=== PATIENT | female | born 1930 | race Caucasian/White ===

== ENCOUNTER → 2017-01-07 | Outpatient (CLI) | payer MEDICARE, BC ==
--- NOTE | 2017-01-07 16:19 | PN ---
DATE OF SERVICE: 01/07/2017 This patient is an 86-year-old lady coming for her yearly follow-up visit in the sleep center for treatment of obstructive sleep apnea-hypopnea syndrome. Patient continues to use her equipment every night. She sleeps better with the machine. She sleeps by herself, so there is no clear information about the presence of any snoring. Glennie Sleepiness Scale is 9. I checked her CPAP unit. CPAP pressure is 10 cm of water. Usage is 30 out of 30 nights for more than 4 hours. RAMP time is 20 minutes. Patient does not experience any problem with the usage of her machine; likes her mask; replacing her supplies regularly. She is on treatment with Ambien 2.5 mg at bedtime to help her fall asleep, and on this regimen she falls asleep pretty well. MEDICATIONS: 1. Baby aspirin. 2. Atorvastatin. 3. Benadryl. 4. Felodipine. 5. Losartan. 6. Lutein. 7. Metformin. 8. Metoprolol. 9. Ranitidine. 10. Vitamin D. 11. [place]. PHYSICAL EXAMINATION: HEENT: PERRLA, EOMI. Evaluation of oropharynx showed tongue protrudes midline; extremely low position of soft palate. NECK: Supple. No JVD. Thyroid is not palpable. LUNGS: Clear to percussion and to auscultation. Good air exchange. No wheezing or rhonchi. HEART: S1, S2 regular. No murmurs, gallops or rubs. ABDOMEN: Obese. EXTREMITIES: One plus bilateral ankle edema. PROJECT MANAGEMENT ANALYST: Awake, alert, and oriented x3. Cranial nerves 2 to 7 intact. There is no fasciculation or atrophy noted. No focal deficits observed. IMPRESSION: 1. Obstructive sleep apnea-hypopnea syndrome. Patient demonstrated 100% compliance with treatment with CPAP, benefitting from treatment. 2. Obesity. Patient's weight has increased weight around 7 pounds since previous visit, but that may be related to changes of her ( ). 3. Hypertension. 4. Diabetes mellitus. 5. Swelling of the legs. 6. End-stage renal disease, stage III. 7. Acid reflux. 8. Difficulties initiating sleep. PLAN: 1. Patient will continue to use her CPAP equipment every night for the whole night with the same regimen and CPAP pressure of 10 cm of water. 2. Prescription for all necessary CPAP supplies, including mask, tube, filters. 3. Losing weight. 4. Patient may continue to use Ambien 2.5 mg at bedtime. 5. Precautions related to driving. No driving if feeling any sleepiness. Thank you very much for allowing me to participate in the management of your patient. Sincerely, Javi Eugene MD, PhD, FAASM. Diplomat of [employer] [employer], Sleep Medicine Board by [employer], [employer] [employer]
== END | disposition home or self-care (01) ==
LOC: SLEEP 13:50
PROVIDERS: ATTEND Internal Medicine
DX: G47.33 Obstructive sleep apnea (adult) (pediatric) (principal); E66.9 Obesity, unspecified; K21.9 Gastro-esophageal reflux disease without esophagitis; E11.22 Type 2 diabetes mellitus with diabetic chronic kidney disease; I12.0 Hypertensive chronic kidney disease with stage 5 chronic kidney disease or end stage renal disease; N18.6 End stage renal disease; Z79.84 Long term (current) use of oral hypoglycemic drugs; Z68.38 Body mass index [BMI] 38.0-38.9, adult; Z79.82 Long term (current) use of aspirin; Z99.89 Dependence on other enabling machines and devices; Z79.899 Other long term (current) drug therapy

== ENCOUNTER 2017-04-21 10:57 | Observation (INO) | payer MEDICARE, BC ==
[2017-04-21 12:03] LABS: Basophils # (A) 0.1 k/uL (0-0.2); Basophils % (A) 1 %; CH 30.2; CHCM 32.7; Eosinophils # (A) 0.2 k/uL (0-0.7); Eosinophils % (A) 2 %; HCT 37.2 % (34.0-46.0); HDW 2.55; HGB 11.7 gm/dL (11.4-16.0); Luc # (Auto) 0.18; Luc % (Auto) 2; Lymphocytes # (A) 1.2 k/uL (1.0-4.8); Lymphocytes % (A) 13 %; MCH 29.2 pg (25.0-35.0); MCHC 31.5 g/dL (31.0-37.0); MCV 92.8 fL (80.0-100.0); Mean Platelet Volume 7.4; Monocytes # (A) 0.5 k/uL (0-1.0); Monocytes % (A) 6 %; Neutrophils # (A) 7.5 k/uL (1.3-7.7); Neutrophils % (A) 77 %; RBC 4.01 m/uL (3.80-5.40); WBC 9.7 k/uL (3.8-10.6); WBC (Perox) 9.01
[2017-04-21 12:08] LABS: Partial Thromboplastin Time 23.4 sec (22.0-30.0); Prothrombin Time 10.5 sec (9.0-12.0)
[2017-04-21 12:09] LABS: Calcium 9.9 mg/dL (8.4-10.2); Magnesium 1.5 mg/dL (1.6-2.3); Potassium 4.8 mmol/L (3.5-5.1); Total Bilirubin 0.4 mg/dL (0.2-1.3); Total Protein 7.4 g/dL (6.3-8.2)
[2017-04-21 12:20] LABS: Creatine Kinase 36 U/L (30-135)
--- NOTE | 2017-04-21 12:22 | ED ---
Chest Pain HPI - General Chief Complaint: Chest Pain Stated Complaint: Chest Pain Time Seen by Provider: 04/21/17 11:00 Source: EMS, RN notes reviewed Mode of arrival: EMS Limitations: no limitations - History of Present Illness Initial Comments: This 87-year-old female who is brought in for evaluation of chest discomfort and jaw pain. She states she was taken off her beta fanny yesterday she started developing retrosternal chest pain and jaw pain today. She states the pain was 3-4/10 severity. She also felt like her heart was acting up. This woke her up from sleep she notes increased pulse rate in she states she had increased blood pressure she is showing good now he does not have any discomfort at this time. No fevers chills nausea vomiting sweats. MD Complaint: chest pain - Related Data Home Medications Medication Instructions Recorded Confirmed Metoprolol Tartrate [Lopressor] 50 mg PO BID 05/06/14 04/21/17 Losartan [Cozaar] 50 mg PO HS 09/24/14 04/21/17 Multivitamins, Thera [Multivitamin 1 tab PO DAILY 09/24/14 04/21/17 (formulary)] [place]-3 Fatty Acids/Fish Oil [Fish 1 cap PO DAILY 09/24/14 04/21/17 Oil 1,000 mg Softgel] Aspirin 81 mg PO DAILY 01/28/15 04/21/17 Atorvastatin [Lipitor] 20 mg PO HS 01/28/15 04/21/17 Lutein 6 mg PO DAILY 01/28/15 04/21/17 Zolpidem [Ambien] 5 mg PO HS PRN 01/28/15 04/21/17 Felodipine [Felodipine ER] 10 mg PO DAILY 04/21/17 04/21/17 Loperamide HCl [Imodium A-D] 2 mg PO DAILY 04/21/17 04/21/17 Losartan Potassium 100 mg PO DAILY 04/21/17 04/21/17 Magnesium Oxide [Mag-Ox] 400 mg PO DAILY 04/21/17 04/21/17 Ranitidine HCl [Zantac] 150 mg PO DAILY 04/21/17 04/21/17 diphenhydrAMINE [Benadryl] 50 mg PO HS PRN 04/21/17 04/21/17 metFORMIN HCL [Glucophage] 500 mg PO DAILY 04/21/17 04/21/17 Allergies Allergy/AdvReac Type Severity Reaction Status Date / Time Penicillins Allergy Anaphylaxis Verified 04/21/17 11:26 codeine AdvReac Severe Nausea, Verified 04/21/17 11:26 Headache tramadol HCl [From Ultram] AdvReac Severe Nausea, Verified 04/21/17 11:26 Headache Review of Systems ROS Statement: Those systems with pertinent positive or pertinent negative responses have been documented in the HPI. ROS Other: All systems not noted in ROS Statement are negative. EKG Findings - EKG Results: EKG: interpreted by ERMD, sinus rhythm (Sinus rhythm of 91 ID interval 206 QRS duration 90 QT/QTC of 3/467 poor R-wave progression no acute ST-T wave changes) Past Medical History Past Medical History: CVA/TIA, Diabetes Mellitus, GERD/Reflux, Hyperlipidemia, Hypertension, Sleep Apnea/CPAP/BIPAP, Thyroid Disorder Additional Past Medical History / Comment(s): HX OF : TIA, PERIPHERAL NEUOPATHY , DIET CONTROLLED DIABETES, SWELLING IN LEGS AND FEET- WEARS COMPRESSION STOCKINGS. HX OF VIRAL HEPATITIS (1958).USES C-PAP MACHINE @ HOME. History of Any Multi-Drug Resistant Organisms: MRSA Date of last positivie culture/infection: 01/28/2015 MDRO Source:: sputum Past Surgical History: Appendectomy, Joint Replacement, Orthopedic Surgery Additional Past Surgical History / Comment(s): 10/09/14 Total L knee arthroplasty. THYROID AND PARA THYROID SURG (2011), RT ROTATOR CUFF(2002), ROCAEL CATARACTS, RT HAND(2012), OVARIAN CYST, ECTOPIC PREGANCY, RT KNEE REPLACEMENT ( 1998), left knee Oct 2014, "electrical problem in heart" Past Anesthesia/Blood Transfusion Reactions: No Reported Reaction Additional Past Anesthesia/Blood Transfusion Reaction / Comment(s): STATES SEVERE POST NASAL DRIP . Past Psychological History: Anxiety Smoking Status: Former smoker Past Alcohol Use History: Rare Past Drug Use History: None Reported - Past Family History Father Family Medical History: Cancer Additional Family Medical History / Comment(s): ESOPHAGEAL CANCER Mother Family Medical History: Coronary Artery Disease (CAD) Additional Family Medical History / Comment(s): Mother at 100 yrs of age. General Exam - General Exam Comments Initial Comments: Physical well-developed well-nourished awake alert oriented 3 female Limitations: no limitations Course Vital Signs 04/21/17 04/21/17 04/21/17 11:23 12:27 13:00 Temperature 97.6 F Pulse Rate 90 87 80 Respiratory 20 18 18 Rate Blood Pressure 174/70 143/66 141/65 O2 Sat by Pulse 100 99 95 Oximetry 04/21/17 14:00 Temperature Pulse Rate 86 Respiratory 18 Rate Blood Pressure 148/68 O2 Sat by Pulse 97 Oximetry Chest Pain MDM - MDM I did discuss the findings with the patient. Patient will be admitted she has no further chest pain at this time she has had some jaw pain but she states this is somewhat chronic. I did discuss case with Dr. Ardon with the patient will be admitted to. Cardiology will be consulted. Critical Care Time Critical Care Time: Yes Critical Care Time: 31 minutes of critical care time which includes initial presentation with history physical labs x-rays discussion with the paramedics monitoring the access rep run. Repeat evaluation of the patient discussed with the admitting physician admission orders and documentation of the above Disposition Clinical Impression: Unstable angina pectoris Disposition: ADMITTED IP TO THIS HOSP Condition: Stable Referrals: Madelin Szymanski MD [Primary Care Provider] - 1-2 days
--- NOTE | 2017-04-21 12:31 | XR ---
EXAMINATION TYPE: XR chest 2V DATE OF EXAM: 04/21/2017 COMPARISON: 02/01/2015 HISTORY: 87-year-old female with chest pain TECHNIQUE: AP and lateral views FINDINGS: Heart is upper limits of normal in size. Aorta and pulmonary vasculature within normal limits. Mild d iffuse interstitial prominence has a chronic appearance. No consolidation or pleural effusion seen. E ndplate spondylosis throughout the thoracic spine. IMPRESSION: Borderline heart size. There are chronic changes without acute process seen.
[2017-04-21 12:33] LABS: Creatine Kinase MB 0.9 ng/mL (0.0-2.4); Troponin I <0.012 ng/mL (0.000-0.034)
[2017-04-21 12:54] VITALS: RESP 18
[2017-04-21] MEDS ORDERED: NITROGLYCERIN SL TABS 0.4 MG TAB SUBLINGUAL PRN (16:44)
[2017-04-21] MEDS ORDERED: HEPARIN SODIUM,PORCINE 5,000 UNIT/ML 1 ML VIAL IV ONE (16:44)
[2017-04-21] MEDS ORDERED: SODIUM CHLORIDE 0.9% 1,000 ML IV SCH (16:45)
[2017-04-21] MEDS ORDERED: HEPARIN SODIUM,PORCINE/D5W PMX 25,000 UNIT in DEXTROSE/WATER 1 500ML.BAG IV SCH (16:45)
[2017-04-21] MEDS ORDERED: diphenhydrAMINE 25 MG CAP PO PRN (16:47)
[2017-04-21] MEDS ORDERED: ZOLPIDEM 5 MG TAB PO PRN ×2 (16:47→19:57)
[2017-04-21 17:10] LABS: Glucose,Whole Blood 87 mg/dL (75-99)
[2017-04-21 18:52] LABS: Creatine Kinase MB 1.1 ng/mL (0.0-2.4); Troponin I 0.02 ng/mL (0.000-0.034)
--- NOTE | 2017-04-21 19:46 | P.HPIM ---
History of Present Illness H&P Date: 04/21/17 Chief Complaint: palpitations 87-year-old female with past medical history significant for TIA, diabetes mellitus type 2, GERD and hypertension and obstructive sleep apnea on CPAP. PATIENT PRESENTS TO THE EMERGENCY DEPARTMENT DUE TO AN ATTACK OF PALPITATIONS. SHE REPORTS THAT SHE WOKE UP THIS MORNING AT 7:30 and was aware of her heart beating however she denies any associated symptoms. She denied any dizziness, lightheadedness, changes in her vision, shortness of breath, nausea or vomiting. She reports possibly a very mild chest discomfort described it as being centrally located 2-3 out of 10 in severity that was intermittent in nature felted as slight heaviness without any radiation and was waxing and waning in nature. She was slightly worried and took a full dose of aspirin and some Xanax and waited for it to go away on its own. She got up and went along about her day made breakfast and then at around 8:30 to 9 because the symptoms didn't go away she decides to take another full dose of aspirin and Xanax and called her PCP Dr. Szymanski. Dr. Szymanski advised her to go to the hospital to get evaluated. Patient continues to report no associated symptoms except awareness of her heartbeat. Patient took her vital signs and she found that her heart rate was ranging between 114-120 and her blood pressure was 197/114. Normally she reports that her blood pressure is always under control and that her heart rate is normally in the range of 70-80 beats per minutes. She ended up calling EMS and was brought to the hospital for further care. Patient continued to be asymptomatic otherwise. She reports that awareness of her heartbeat has actually happened before and that was 3-4 weeks ago when she felted intermittently for which she seeks medical advice at that time and her PCP decided to perform a stress test on . And the patient was instructed to stop her beta fanny on 2016. Patient otherwise denies any history of coronary artery disease. She reports that remotely she had a heart cath done 7 years ago and she was told that was normal. Patient currently reports compliance with her medications and reports that she is able to ambulate Hour at a time using her walker without having any chest pain or trouble breathing however he takes she takes things slowly. Patient reports that her diabetes is well controlled using metformin only. And she admits to a remote history of TIA without any residual weakness. Currently patient is laying comfortable in bed very pleasant and conversant not in any acute distress, we discussed advanced directive and patient elected to be a full code she reported that she has advanced directive papers signed with her doctor. Review of Systems Constitutional: Patient reports no fever, no chills, no night sweating, no significant weight changes Eyes: Patient reports no visual changes, no eye pain ENT: Patient reports no ear pain, no rhinorrhea, no sore throat Cardiovascular: Patient reports no chest pain, no exertional dyspnea, no orthopnea, no paroxysmal nocturnal dyspnea. Patient admits to chronic peripheral edema and lymphedema Respiratory:Patient reports no cough, no wheezing, no shortness of breath. Patient admits to snoring at night for which she uses CPAP Gastrointestinal: Patient reports , no constipation, no nausea no vomiting, no abdominal pain. Patient reports history of irritable bowel syndrome with diarrhea she doesn't take loperamide Genitourinary: Patient reports no dysuria, no hematuria, no changes in urinary habits, no genital lesions. Patient admits to urinary leakage at times Musculoskeletal: Patient reports no muscle pain, no joint pain Psychiatric: Patient reports no changes in mood or memory, no suicidal ideation , she reports anxiety Endocrine: Patient reports no heat intolerance, no cold intolerance, no excessive thirst, no polyuria Neurological: Patient reports no focal neurologic deficits, no weakness, no numbness, no tingling Hem/Lymphatic: Patient reports no bleeding tendency, no bruising, no swollen lymph glands Allergic/Immun: Patient reports no recent allergic reactions Skin: Patient reports no rashes, no pruritis, no ulcers Past Medical History Past Medical History: CVA/TIA, Diabetes Mellitus, GERD/Reflux, Hyperlipidemia, Hypertension, Sleep Apnea/CPAP/BIPAP, Thyroid Disorder Additional Past Medical History / Comment(s): HX OF : TIA, PERIPHERAL NEUOPATHY , DIET CONTROLLED DIABETES, SWELLING IN LEGS AND FEET- WEARS COMPRESSION STOCKINGS. HX OF VIRAL HEPATITIS (1958).USES C-PAP MACHINE @ HOME. She does not know her CPAP settings. CKDIII History of Any Multi-Drug Resistant Organisms: MRSA Date of last positivie culture/infection: 01/28/2015 MDRO Source:: sputum Past Surgical History: Appendectomy, Joint Replacement, Orthopedic Surgery Additional Past Surgical History / Comment(s): 10/09/14 Total L knee arthroplasty. THYROID AND PARA THYROID SURG (2011), RT ROTATOR CUFF(2002), ROCAEL CATARACTS, RT HAND(2012), OVARIAN CYST, ECTOPIC PREGANCY, RT KNEE REPLACEMENT ( 1998), left knee Oct 2014, "electrical problem in heart" Past Anesthesia/Blood Transfusion Reactions: No Reported Reaction Additional Past Anesthesia/Blood Transfusion Reaction / Comment(s): STATES SEVERE POST NASAL DRIP . Past Psychological History: Anxiety Smoking Status: Former smoker Past Alcohol Use History: None Reported, Rare Past Drug Use History: None Reported Additional Drug Use History / Comment(s): Patient lives alone in long term uses a walker to ambulate - Past Family History Father Family Medical History: Cancer Additional Family Medical History / Comment(s): ESOPHAGEAL CANCER Mother Family Medical History: Coronary Artery Disease (CAD) Additional Family Medical History / Comment(s): Mother at 100 yrs of age. Medications and Allergies Home Medications Medication Instructions Recorded Confirmed Type RX: Metoprolol Tartrate [Lopressor] 50 mg PO BID 05/06/14 04/21/17 History RX: Losartan [Cozaar] 50 mg PO HS 09/24/14 04/21/17 History RX: Multivitamins, Thera 1 tab PO DAILY 09/24/14 04/21/17 History [Multivitamin (formulary)] RX: [place]-3 Fatty Acids/Fish Oil 1 cap PO DAILY 09/24/14 04/21/17 History [Fish Oil 1,000 mg Softgel] Lutein 6 mg PO DAILY 01/28/15 04/21/17 History RX: Aspirin 81 mg PO DAILY 01/28/15 04/21/17 History RX: Atorvastatin [Lipitor] 20 mg PO HS 01/28/15 04/21/17 History RX: Zolpidem [Ambien] 5 mg PO HS PRN 01/28/15 04/21/17 History Felodipine [Felodipine ER] 10 mg PO DAILY 04/21/17 04/21/17 History Loperamide HCl [Imodium A-D] 2 mg PO DAILY 04/21/17 04/21/17 History Magnesium Oxide [Mag-Ox] 400 mg PO DAILY 04/21/17 04/21/17 History RX: Losartan Potassium 100 mg PO DAILY 04/21/17 04/21/17 History RX: metFORMIN HCL [Glucophage] 500 mg PO DAILY 04/21/17 04/21/17 History Ranitidine HCl [Zantac] 150 mg PO DAILY 04/21/17 04/21/17 History diphenhydrAMINE [Benadryl] 50 mg PO HS PRN 04/21/17 04/21/17 History Allergies Allergy/AdvReac Type Severity Reaction Status Date / Time Penicillins Allergy Anaphylaxis Verified 04/21/17 11:26 codeine AdvReac Severe Nausea, Verified 04/21/17 11:26 Headache tramadol HCl [From Ultram] AdvReac Severe Nausea, Verified 04/21/17 11:26 Headache Physical Exam Vitals: Vital Signs Temp Pulse Pulse Resp BP BP Pulse Ox 04/21/17 17:30 97.6 F 93 18 172/77 96 04/21/17 17:17 98.6 F 90 18 156/67 98 04/21/17 17:00 87 18 156/67 100 04/21/17 16:00 86 18 147/66 100 04/21/17 15:00 102 H 18 183/79 97 04/21/17 14:00 86 18 148/68 97 04/21/17 13:00 80 18 141/65 95 04/21/17 12:27 87 18 143/66 99 04/21/17 11:23 97.6 F 90 20 174/70 100 Intake and Output 04/21/17 04/21/17 04/21/17 06:59 14:59 22:59 Other: Weight 98.43 kg 98.5 kg Patient Weight 04/22/17 06:59 Weight 98.5 kg Constitutional: Not in acute distress, pleasant, conversant Eyes: Pupils equal round reactive to light, anicteric sclerae, moist conjunctivae ENMT: Normocephalic, atraumatic, oropharynx clear, no erythema/exudate Neck: Supple, FORM, no palpable thyromegally Lymphatics: no palpable cervical or supraclavicular lymph nodes Respiratory: Clear to auscultation bilaterally, no wheezes, no crackles, no rhonchi, clear to percussion, normal respiratory effort without use of accessory muscles. kyphosis Cardiovascular: Regular rate and rhythm, no murmurs, no gallops, no rubs, bilateral peripheral leg edema +2 , no JVD, no carotid bruits, peripheral pulses palpable and equal over bilateral radial arteries and dorsalis pedis arteries Abdomen: Bowel sounds positive, soft, no tenderness to palpation, no palpable masses, no palpable hepatosplenomegally, no abdominal wall hernias , mild abd distention Skin: Unremarkable temperature, tone, texture, and turgor, no induration or subcutaneous nodule, no rashes, no lesions, no ulcers Extremities: No digital cyanosis, ischemia or clubbing, no calf muscle tenderness bilaterally, full grossly intact active range of motion of both upper and lower extremities Psych: Alert, oriented to place, person and date, recent and remote memory intact, appropriate mood and affect, intact judgment Neurologic: Cranial nerves II-XII grossly intact, no focal sensory deficits to touch, Deep tendon reflexes unremarkable over bilateral brachial reflex Results Results: labs reviewed EKG reviewed shows a Q wave in lead III, and first degree AVB CBC & Chem 7: 04/21/17 11:33 04/21/17 11:33 Labs: Abnormal Lab Results - Last 24 Hours (Table) 04/21/17 Range/Units 11:33 Carbon Dioxide 19 L (22-30) mmol/L BUN 24 H (7-17) mg/dL Creatinine 1.23 H (0.52-1.04) mg/dL Glucose 190 H (74-99) mg/dL Magnesium 1.5 L (1.6-2.3) mg/dL Thrombosis Risk Factor Assmnt - DVT/VTE Prophylaxis DVT/VTE Prophylaxis: Pharmacologic Prophylaxis ordered (patient on heparin drip) - Choose All That Apply Any of the Below Risk Factors Present?: Yes Each Factor Represents 1 point: Obesity (BMI >25), Swollen legs (current), Varicose veins Other Risk Factors: Yes Each Risk Factor Represents 2 Points: Patient confined to bed Each Risk Factor Represents 3 Points: Age 75 years or older Thrombosis Risk Factor Assessment Total Risk Factor Score: 8 Thrombosis Risk Factor Assessment Level: High Risk Assessment and Plan (1) Heart palpitations Narrative/Plan: This is most likely further precipitated by abrupt withdrawal of metoprolol cardiac monitoring r/o underlying ACS EKG revealed a q wave in inferior leads, patient does not recall a heart attack in the past on heparin gtt now cardiology consult continue ASA, statin check TSH monitor electrolytes check 2 D echo Status: Acute (2) Accelerated hypertension Narrative/Plan: due to BB withdrawal resume metoprolol resume home blood pressure meds losartan and CCB monitor vital signs clonidine prn for SBP>170 Status: Acute (3) DM type 2 (diabetes mellitus, type 2) Narrative/Plan: controlled with diet and metformin patient reports recent A1C of 6.3% blood sugar ACHS Status: Chronic (4) CKD (chronic kidney disease), stage III Narrative/Plan: closely monitor renal function if heart cath is considered , patient would benefit from hydration IV prior , and nephro consult monitor electrolytes and urine output Status: Chronic (5) DVT prophylaxis Narrative/Plan: on heparin drip now Status: Acute (6) ALVIN (obstructive sleep apnea) Narrative/Plan: patient uses CPAP at home she is not aware of her home settings Status: Chronic Plan: full CODE Time with Patient: Greater than 30
[2017-04-21] MEDS ORDERED: ACETAMINOPHEN TAB 325 MG TAB PO PRN (19:49)
[2017-04-21] MEDS ORDERED: NALOXONE 0.4 MG/ML 1 ML VIAL IV PRN (19:49)
[2017-04-21] MEDS ORDERED: cloNIDine HCL 0.2 MG TAB PO PRN (19:58)
[2017-04-21 20:17] LABS: Glucose,Whole Blood 115 mg/dL (75-99)
[2017-04-21] MEDS: METOPROLOL TARTRATE 50 MG TAB PO SCH (20:59)
[2017-04-21] MEDS ORDERED: LOSARTAN 50 MG TAB PO SCH (21:00)
[2017-04-21] MEDS ORDERED: ATORVASTATIN 20 MG TAB PO SCH (21:00)
[2017-04-21] MEDS: NITROGLYCERIN OINT 1 INCH/GM PACKET TOPICAL SCH ×2 (21:03→23:57)
[2017-04-21 23:22] LABS: Creatine Kinase MB 1.1 ng/mL (0.0-2.4); Troponin I 0.014 ng/mL (0.000-0.034)
[2017-04-22] MEDS: NITROGLYCERIN OINT 1 INCH/GM PACKET TOPICAL SCH (06:05)
[2017-04-22 07:06] LABS: Glucose,Whole Blood 102 mg/dL (75-99)
[2017-04-22 07:25] LABS: Basophils # (A) 0.1 k/uL (0-0.2); Basophils % (A) 1 %; CHCM 31.7; Eosinophils # (A) 0.3 k/uL (0-0.7); Eosinophils % (A) 4 %; HCT 35.1 % (34.0-46.0); HDW 2.52; HGB 11.2 gm/dL (11.4-16.0); Luc # (Auto) 0.15; Luc % (Auto) 2; Lymphocytes # (A) 1.6 k/uL (1.0-4.8); Lymphocytes % (A) 20 %; MCH 30.4 pg (25.0-35.0); MCHC 31.9 g/dL (31.0-37.0); MCV 95.3 fL (80.0-100.0); Monocytes # (A) 0.6 k/uL (0-1.0); Monocytes % (A) 7 %; Neutrophils % (A) 65 %; RBC 3.69 m/uL (3.80-5.40); RDW 13.9 % (11.5-15.5); WBC 7.6 k/uL (3.8-10.6)
[2017-04-22 07:37] LABS: Calcium 9.5 mg/dL (8.4-10.2); Magnesium 1.5 mg/dL (1.6-2.3); Potassium 4.8 mmol/L (3.5-5.1)
[2017-04-22] MEDS ORDERED: REGADENOSON 0.4 MG/5 ML SYRINGE IV ONE (08:22)
[2017-04-22] MEDS ORDERED: AMINOPHYLLINE 500 MG/20 ML VIAL IV PRN (08:22)
[2017-04-22] MEDS ORDERED: MAGNESIUM OXIDE 400 MG TAB PO SCH (09:00)
[2017-04-22] MEDS ORDERED: LOPERAMIDE 2 MG CAP PO SCH (09:00)
[2017-04-22] MEDS ORDERED: LOSARTAN 50 MG TAB PO SCH (09:00)
[2017-04-22] MEDS ORDERED: metFORMIN 500 MG TAB PO SCH (09:00)
[2017-04-22] MEDS ORDERED: NON-FORMULARY DRUG (Omega-3 Fatty Acids/Fish Oil [Fish Oil 1,000 Mg Softgel] 1 CAP) PO SCH (09:00)
[2017-04-22] MEDS ORDERED: ASPIRIN 81 MG CHEW PO SCH (09:00)
[2017-04-22] MEDS ORDERED: amLODIPine 10 MG TAB PO SCH (09:00)
[2017-04-22] MEDS ORDERED: NON-FORMULARY DRUG (Lutein 6 MG) PO SCH (09:00)
[2017-04-22] MEDS ORDERED: FAMOTIDINE 20 MG TAB PO SCH (09:00)
[2017-04-22] MEDS ORDERED: ASPIRIN 325 MG TAB PO SCH (09:00)
--- NOTE | 2017-04-22 10:37 | ECHOF ---
Referral Reason:chest pain MEASUREMENTS -------- HEIGHT: 160.0 cm WEIGHT: 98.4 kg BP: 148/67 RVIDd: 2.6 cm (< 3.3) IVSd: 1.2 cm (0.6 - 1.1) LVIDd: 3.8 cm (3.9 - 5.3) LVPWd: 1.2 cm (0.6 - 1.1) IVSs: 1.6 cm LVIDs: 2.7 cm LVPWs: 1.6 cm LA Diam: 3.1 cm (2.7 - 3.8) LAESV Index (A-L): 21.66 ml/m Ao Diam: 3.2 cm (2.0 - 3.7) AV Cusp: 1.7 cm (1.5 - 2.6) MV EXCURSION: 14.881 mm (> 18.000) MV EF SLOPE: 29 mm/s (70 - 150) EPSS: 0.8 cm MV E Alejandro: 0.84 m/s MV DecT: 319 ms MV A Alejandro: 1.11 m/s MV E/A Ratio: 0.76 AR PHT: 2120 ms RAP: 5.00 mmHg RVSP: 31.41 mmHg FINDINGS -------- Sinus rhythm. This was a technically difficult study with suboptimal apical views. The left ventricular size is normal. There is borderline concentric left ventricular hypertrophy. Overall left ventricular systolic function is normal with, an EF between 60 - 65 %. The right ventricle is normal in size. Normal LA size by volume 22+/-6 ml/m2. The right atrium is normal in size. 1.5mg of Definity was utilized for enhancement of images There is mild aortic valve sclerosis. Trace to mild aortic regurgitation. The mitral valve leaflets are mildly thickened. Mild tricuspid regurgitation present. Right ventricular systolic pressure is normal at < 35 mmHg. The pulmonic valve was not well visualized. The aortic root size is normal. IVC Not well visulized. There is no pericardial effusion. CONCLUSIONS -------- 1. Sinus rhythm. 2. There is mild aortic valve sclerosis. 3. Trace to mild aortic regurgitation. 4. The mitral valve leaflets are mildly thickened. 5. Mild tricuspid regurgitation present. 6. Right ventricular systolic pressure is normal at < 35 mmHg. 7. The pulmonic valve was not well visualized. 8. The aortic root size is normal. 9. IVC Not well visulized. 10. There is no pericardial effusion. 11. This was a technically difficult study with suboptimal apical views. 12. The left ventricular size is normal. 13. There is borderline concentric left ventricular hypertrophy. 14. Overall left ventricular systolic function is normal with, an EF between 60 - 65 %. 15. The right ventricle is normal in size. 16. Normal LA size by volume 22+/-6 ml/m2. 17. The right atrium is normal in size. 18. 1.5mg of Definity was utilized for enhancement of images MAINTENANCE MECHANIC: Denia Rosas RDCS
--- NOTE | 2017-04-22 11:50 | NM ---
EXAMINATION TYPE: NM stress lexiscan cardiolite DATE OF EXAM: 04/22/2017 COMPARISON: NONE HISTORY: Chest pain TECHNIQUE: After the intravenous administration of 10.7 mCi Tc 99m Sestamibi - Cardiolite resting SP ECT images acquired 45 minutes post injection. The patient received 0.4mg Lexiscan, 28.1 mCi Tc 99m Sestamibi - Stress images obtained [address] injection FINDINGS: Review of stress and rest SPECT images demonstrates no distinct perfusion abnormality. Gated analysi s shows questionable paradoxical wall motion at the apex with an estimated left ventricular ejection fraction of 54 %. IMPRESSION: No scintigraphic evidence for reversible ischemia. Consider echocardiographic correlation for wall mo tion.
[2017-04-22 11:57] LABS: Glucose,Whole Blood 115 mg/dL (75-99)
[2017-04-22] MEDS ORDERED: MULTIVITAMINS, THERA 1 EACH TAB PO SCH (12:00)
[2017-04-22] MEDS: METOPROLOL TARTRATE 50 MG TAB PO SCH (12:02)
[2017-04-22 12:09] LABS: Hemoglobin A1C 6.5 % (4.2-6.1)
--- NOTE | 2017-04-22 12:16 | EST ---
DATE OF SERVICE: 04/22/2017 TYPE OF REPORT: LEXISCAN CARDIOLITE STRESS TEST INDICATION: Chest pain. BASELINE HEART RATE: 71 BASELINE BLOOD PRESSURE: 116/76 MAXIMUM HEART RATE: 88 MAXIMUM BLOOD PRESSURE: 190/79 85% MPHR: 115 100% MPHR: 135 METS: - MAXIMUM STAGE REACHED: - TOTAL EXERCISE TIME: - Baseline EKG revealed a normal sinus rhythm without significant ST-T changes with Lexiscan administration. Patient's separate heart rate changed from 71 to 88 beats per minute and blood pressure changed from 116/76 to 190/79 and then came back to be ( ) slowly. EKG did not reveal any ST segment changes to indicate ischemia. IMPRESSION: 1. By EKG criteria, this is a unremarkable exercise stress test with some hypertension. 2. The nuclear scan results which are more pertinent, will be reported by the radiologist. KENY
[2017-04-22 12:33] VITALS: BP 156/76; PULSE 83; TEMP 97.6
[2017-04-22] MEDS ORDERED: MAGNESIUM SULFATE-D5W PMX 1 GM in DEXTROSE/WATER 1 100ML.BAG IVPB SCH (13:00)
--- NOTE | 2017-04-22 13:04 | P.CRDCN ---
History of Present Illness Consult date: 04/22/17 History of present illness: This is a 87-year-old female. Past medical history significant for TIA, DM type II, GERD, HTN, obstructive sleep apnea and lymphedema. Patient presents with complaints of palpitations and jaw pain. She states she is scheduled for a Lexiscan today as an outpatient per Dr. Szymanski and hasn't taken her metoprolol in preparation. She states she was put on metoprolol per EL Izaguirre many years ago for palpitations. We will review those records. She states the palpitations began yesterday am when she woke up and persisted throughout the day. She recalls minor chest discomfort intermittently as well. She denies nausea, vomiting, dizziness, shortness of breath or diaphoresis. The jaw pain has happened over the previous few weeks intermittently while she is up walking around and subsides on its own when she sits down to rest. At the current time of my exam she denies chest pain, jaw pain or palpitations. EKG done shows sinus mechanism, rate of 91 beats per minute with no T-wave abnormality with nonspecific changes in anterior leads. When compared with old EKG on file from 2014 this appears consistent with no acute changes. Hgb 11.2, potassium 4.8, BUN 23, Cr 1.18. CPK and troponin are normal x 2. Chest x-ray showed borderline heart size with no acute cardiopulmonary process present. There is no echo on file within the last 3 years. Review of Systems REVIEW OF SYSTEMS: patient denies all complaints at this time.Patient denies any chest discomfort. No shortness of breath. No diaphoresis. Denies headache, dizziness, blurred vision, double vision. No dyspnea on exertion. Patient denies any stomach discomfort. No nausea, vomiting. No hematochezia. No hematemesis. Denies any black stools or blood in his stools. No syncope. No palpitations. No cough. No recent fever or chills. No muscle weakness or numbness. Past Medical History Past Medical History: CVA/TIA, Diabetes Mellitus, GERD/Reflux, Hyperlipidemia, Hypertension, Sleep Apnea/CPAP/BIPAP, Thyroid Disorder Additional Past Medical History / Comment(s): HX OF : TIA, PERIPHERAL NEUOPATHY , DIET CONTROLLED DIABETES, SWELLING IN LEGS AND FEET- WEARS COMPRESSION STOCKINGS. HX OF VIRAL HEPATITIS (1958).USES C-PAP MACHINE @ HOME. She does not know her CPAP settings. CKDIII History of Any Multi-Drug Resistant Organisms: MRSA Date of last positivie culture/infection: 01/28/2015 MDRO Source:: sputum Past Surgical History: Appendectomy, Joint Replacement, Orthopedic Surgery Additional Past Surgical History / Comment(s): 10/09/14 Total L knee arthroplasty. THYROID AND PARA THYROID SURG (2011), RT ROTATOR CUFF(2002), ROCAEL CATARACTS, RT HAND(2012), OVARIAN CYST, ECTOPIC PREGANCY, RT KNEE REPLACEMENT ( 1998), left knee Oct 2014, "electrical problem in heart" Past Anesthesia/Blood Transfusion Reactions: No Reported Reaction Additional Past Anesthesia/Blood Transfusion Reaction / Comment(s): STATES SEVERE POST NASAL DRIP . Past Psychological History: Anxiety Smoking Status: Former smoker Past Alcohol Use History: None Reported, Rare Past Drug Use History: None Reported Additional Drug Use History / Comment(s): Patient lives alone in retirement uses a walker to ambulate - Past Family History Father Family Medical History: Cancer Additional Family Medical History / Comment(s): ESOPHAGEAL CANCER Mother Family Medical History: Coronary Artery Disease (CAD) Additional Family Medical History / Comment(s): Mother at 100 yrs of age. Medications and Allergies Home Medications Medication Instructions Recorded Confirmed Type Metoprolol Tartrate [Lopressor] 50 mg PO BID 05/06/14 04/21/17 History Losartan [Cozaar] 50 mg PO HS 09/24/14 04/21/17 History Multivitamins, Thera [Multivitamin 1 tab PO DAILY 09/24/14 04/21/17 History (formulary)] Smilax-3 Fatty Acids/Fish Oil [Fish 1 cap PO DAILY 09/24/14 04/21/17 History Oil 1,000 mg Softgel] Aspirin 81 mg PO DAILY 01/28/15 04/21/17 History Atorvastatin [Lipitor] 20 mg PO HS 01/28/15 04/21/17 History Lutein 6 mg PO DAILY 01/28/15 04/21/17 History Zolpidem [Ambien] 5 mg PO HS PRN 01/28/15 04/21/17 History Felodipine [Felodipine ER] 10 mg PO DAILY 04/21/17 04/21/17 History Loperamide HCl [Imodium A-D] 2 mg PO DAILY 04/21/17 04/21/17 History Losartan Potassium 100 mg PO DAILY 04/21/17 04/21/17 History Magnesium Oxide [Mag-Ox] 400 mg PO DAILY 04/21/17 04/21/17 History Ranitidine HCl [Zantac] 150 mg PO DAILY 04/21/17 04/21/17 History diphenhydrAMINE [Benadryl] 50 mg PO HS PRN 04/21/17 04/21/17 History metFORMIN HCL [Glucophage] 500 mg PO DAILY 04/21/17 04/21/17 History Allergies Allergy/AdvReac Type Severity Reaction Status Date / Time Penicillins Allergy Anaphylaxis Verified 04/21/17 20:39 codeine AdvReac Severe Nausea, Verified 04/21/17 20:39 Headache tramadol HCl [From Ultram] AdvReac Severe Nausea, Verified 04/21/17 20:39 Headache Physical Exam Vitals: Vital Signs Temp Pulse Pulse Resp BP BP Pulse Ox 04/22/17 04:00 98 F 80 18 148/67 95 04/22/17 00:00 78 18 04/21/17 22:30 87 18 161/69 95 04/21/17 20:00 80 18 04/21/17 17:30 97.6 F 93 18 172/77 96 04/21/17 17:17 98.6 F 90 18 156/67 98 04/21/17 17:00 87 18 156/67 100 04/21/17 16:00 86 18 147/66 100 04/21/17 15:00 102 H 18 183/79 97 04/21/17 14:00 86 18 148/68 97 04/21/17 13:00 80 18 141/65 95 04/21/17 12:27 87 18 143/66 99 04/21/17 11:23 97.6 F 90 20 174/70 100 Intake and Output 04/21/17 04/22/17 04/22/17 22:59 06:59 14:59 Intake Total 460 780.667 Balance 460 780.667 Intake: Intake, IV Titration 160 580.667 Amount Heparin Sodium,Porcine/ 80 420.667 D5w Pmx 25,000 unit In Dextrose/Water 1 500ml. bag @ 10.16 UNITS/KG/HR 20 mls/hr IV .Q24H [facility] Rx #:[id number] Sodium Chloride 0.9% 1, 80 160 000 ml @ 20 mls/hr IV . Q24H [facility] Rx#:[id number] Oral 300 200 Other: Voiding Method Toilet Toilet # Voids 1 3 Weight 98.5 kg GENERAL: This is a 87-year-old female in no apparent distress at the time of my examination. Obese. HEENT: Head is atraumatic, normocephalic. Pupils are equal, round. Sclerae anicteric. Conjunctivae are clear. Mucous membranes of the mouth are moist. Neck is supple. There is no jugular venous distention. No carotid bruit is heard. LUNGS: Clear to auscultation no wheezes, rales or rhonchi. No chest wall tenderness is noted on palpation or with deep breathing. HEART: Regular rate and rhythm with faint systolic murmur auscultated at the base, no rubs or gallops. S1 and S2 heard. ABDOMEN: Soft, nontender. Bowel sounds are heard. No organomegaly noted. EXTREMITIES: 2+ peripheral pulses with moderate amount of non-pitting peripheral edema to b/l feet and hands. Pt states she suffers from chronic lymphedema. No calf tenderness noted. NEUROLOGIC: Patient is awake, alert and oriented x3. Results 04/22/17 06:37 04/22/17 06:37 Cardiac Enzymes 04/21/17 04/21/17 04/21/17 Range/Units 11:33 11:33 17:59 AST 24 (14-36) U/L CK-MB (CK-2) 0.9 1.1 (0.0-2.4) ng/mL Troponin I <0.012 0.020 (0.000-0.034) ng/mL 04/21/17 Range/Units 22:35 AST (14-36) U/L CK-MB (CK-2) 1.1 (0.0-2.4) ng/mL Troponin I 0.014 (0.000-0.034) ng/mL Coagulation 04/21/17 04/21/17 Range/Units 11:33 22:35 PT 10.5 (9.0-12.0) sec APTT 23.4 40.3 H (22.0-30.0) sec Lipids 04/22/17 Range/Units 06:37 Triglycerides 95 (<150) mg/dL Cholesterol 152 (<200) mg/dL HDL Cholesterol 47 (40-60) mg/dL CBC 04/21/17 04/22/17 Range/Units 11:33 06:37 WBC 9.7 7.6 (3.8-10.6) k/uL RBC 4.01 3.69 L (3.80-5.40) m/uL Hgb 11.7 11.2 L (11.4-16.0) gm/dL Hct 37.2 35.1 (34.0-46.0) % Plt Count 282 253 (150-450) k/uL Comprehensive Metabolic Panel 04/21/17 04/22/17 Range/Units 11:33 06:37 Sodium 139 142 (137-145) mmol/L Potassium 4.8 4.8 (3.5-5.1) mmol/L Chloride 107 111 H (98-107) mmol/L Carbon Dioxide 19 L 21 L (22-30) mmol/L BUN 24 H 23 H (7-17) mg/dL Creatinine 1.23 H 1.18 H (0.52-1.04) mg/dL Glucose 190 H 91 (74-99) mg/dL Calcium 9.9 9.5 (8.4-10.2) mg/dL AST 24 (14-36) U/L ALT 29 (9-52) U/L Alkaline Phosphatase 108 (38-126) U/L Total Protein 7.4 (6.3-8.2) g/dL Albumin 4.1 (3.5-5.0) g/dL Current Medications Generic Name Dose Route Start Last Admin Trade Name Freq PRN Reason Stop Dose Admin Acetaminophen 650 mg 04/21/17 19:49 Tylenol Tab PO Q6HR PRN Mild Pain or Fever > 100.5 Aminophylline 100 mg 04/22/17 08:22 Aminophylline IV ONCE PRN Patient Response Amlodipine Besylate 10 mg 04/22/17 09:00 Norvasc PO DAILY [facility] Aspirin 81 mg 04/22/17 09:00 Aspirin PO DAILY [facility] Atorvastatin Calcium 20 mg 04/21/17 21:00 04/21/17 20:59 Lipitor PO 20 mg HS CEFER[facility] Administration Clonidine 0.2 mg 04/21/17 19:58 Catapres PO TID PRN Blood Pressure - High Diphenhydramine HCl 50 mg 04/21/17 16:47 Benadryl PO HS PRN Insomnia Famotidine 20 mg 04/22/17 09:00 Pepcid PO DAILY [facility] Heparin Sodium/Dextrose 25,000 500 mls @ 20 mls/hr 04/21/17 16:45 04/22/17 06 :13 unit/ IV Solution IV 12.16 units/kg/hr .Q24H [facility] 23.93 mls/hr Protocol Titration 10.16 UNITS/KG/HR Sodium Chloride 1,000 mls @ 20 mls/hr 04/21/17 16:45 04/21/17 17:17 Saline 0.9% IV 20 mls/hr .Q24H [facility] Administration Loperamide HCl 2 mg 04/22/17 09:00 Imodium PO DAILY [facility] Losartan Potassium 50 mg 04/21/17 21:00 04/21/17 20:59 Cozaar PO 50 mg HS [facility] Administration Losartan Potassium 100 mg 04/22/17 09:00 Cozaar PO DAILY [facility] Magnesium Oxide 400 mg 04/22/17 09:00 Mag-Ox PO DAILY [facility] Metformin HCl 500 mg 04/22/17 09:00 Glucophage PO DAILY [facility] Metoprolol Tartrate 50 mg 04/21/17 21:00 04/21/17 20:59 Lopressor PO 50 mg BID [facility] Administration Multivitamins 1 each 04/22/17 12:00 Theragran PO DAILY@1200 [facility] Naloxone HCl 0.2 mg 04/21/17 19:49 Narcan IV Q2M PRN Opioid Reversal Nitroglycerin 1 inch 04/21/17 18:00 04/22/17 06:05 Nitro-Bid Oint TOPICAL 1 inch Q6HR [facility] Administration Nitroglycerin 0.4 mg 04/21/17 16:44 Nitrostat SUBLINGUAL Q5M PRN Chest Pain Regadenoson 0.4 mg 04/22/17 08:22 Lexiscan IV 04/22/17 08:23 ONCE ONE Zolpidem Tartrate 2.5 mg 04/21/17 19:57 04/21/17 22:49 Ambien PO 2.5 mg HS PRN Administration Insomnia Intake and Output 04/21/17 04/22/17 04/22/17 22:59 06:59 14:59 Intake Total 460 780.667 Balance 460 780.667 Intake: Intake, IV Titration 160 580.667 Amount Heparin Sodium,Porcine/ 80 420.667 D5w Pmx 25,000 unit In Dextrose/Water 1 500ml. bag @ 10.16 UNITS/KG/HR 20 mls/hr IV .Q24H [facility] Rx #:[id number] Sodium Chloride 0.9% 1, 80 160 000 ml @ 20 mls/hr IV . Q24H [facility] Rx#:[id number] Oral 300 200 Other: Voiding Method Toilet Toilet # Voids 1 3 Weight 98.5 kg 04/22/17 06:37 04/22/17 06:37 - EKG Interpretation EKG: sinus rhythm, normal ST/T, no acute changes Assessment and Plan Plan: ASSESSMENT 1. Palpitations 2. Left jaw pain 3. Essential hypertension PLAN Proceed with Lexiscan and echocardiogram as was prescribed as an outpatient. This testing comes back normal the patient is stable for discharge home. We will proceed with Holter monitor for 48 hours to further masticate his palpitations. The patient has been advised to resume all current medications. She is to follow-up with Dr. MAREN Izaguirre in the office in one week to discuss these findings. Nurse Practitioner note has been reviewed, I agree with a documented findings and plan of care. Patient was seen and examined.
--- NOTE | 2017-04-22 14:19 | P.DS ---
Providers Date of admission: 04/21/17 16:44 Expected date of discharge: 04/22/17 Attending physician: Vivian Ardon MD Consults: 04/21/17 16:44 Consult Physician Urgent Consulting Provider: Deandre Bursk Consult Reason/Comments: Unstable angina Do you want consulting provider notified?: Yes Primary care physician: Madelin Szymanski MD - Discharge Diagnosis(es) (1) Heart palpitations Current Visit: Yes Status: Acute (2) Accelerated hypertension Current Visit: Yes Status: Resolved (3) DM type 2 (diabetes mellitus, type 2) Current Visit: Yes Status: Chronic (4) CKD (chronic kidney disease), stage III Current Visit: Yes Status: Chronic (5) DVT prophylaxis Current Visit: Yes Status: Acute (6) ALVIN (obstructive sleep apnea) Current Visit: Yes Status: Chronic Hospital Course: 87-year-old female with past medical history significant for TIA, diabetes mellitus type 2, GERD and hypertension and obstructive sleep apnea on CPAP. patient presented after sudden onset of palpitations started in the morning of presentation , patient reported that this was not associated with any other symptoms of chest pain, shortness of breath, dizziness, lightheadedness, or any focal neurologic deficits. she also reported possible awareness of her heart beats in the past for which her PCP has ordered a stress test. patient reported that she stopped her date of block night before the symptoms started in anticipation of her stress test. patient reports that her palpitations did not resolve after 2-3 hours even after taking her medications for which she called her PCP who recommended to her to go to hospital. patient denied any chest pain however due to report some central chest discomfort that she rated at 3 out of 10 in severity felt vague with possible pain in her left lower jaw. otherwise denies any syncope or loss of consciousness. Patient was admitted to the observation unit , she was restarted on her home medications , cardiology was consulted and stress test and echo was ordered for the morning. Lexiscan stress test and 2-D echo of the heart were unremarkable coronary reversible ischemia or wall motion abnormalities. patient's palpitations were most likely secondary to withdrawal from beta blockers which patient stopped in anticipation of her stress test. playground monitor did not reveal any evidence of tachyarrhythmias, and showed normal sinus rhythm with occasional PVCs Magnesium 1.[address] IV Potassium was within normal limits. Cardiology evaluated the patient, recommendations for Holter monitor for 48 hours and follow up as an outpatient. patient also reported elevated systolic blood pressure in the 190s , which has resolved after resuming her medications. blood sugar was overall well controlled during this hospital stay she was maintained on metformin patient was seen and examined on date of discharge. She denied any trouble breathing or chest pain, denies any dizziness or lightheadedness , denied any more episodes of palpitations. she tolerated the above procedures pretty well. Constitutional: vital signs stable, Not in acute distress, pleasant, conversant Lungs: Clear to auscultation bilaterally, clear to percussion, normal respiratory effort no use of accessory muscles Cardiovascular: Regular rate and rhythm, no murmurs, no gallops, no rubs, +2 peripheral leg edema bilaterally Extremities: No digital cyanosis or clubbing, peripheral pulses palpable and equal over bilateral radial arteries and dorsalis pedis artery, no calf muslce tenderness Psych: Alert, oriented to place, person and time Pertinent Studies: Holter monitor for 48 hours was placed on the patient Procedures: Lexiscan stress test, and 2 D echo performed and was unremarkable Patient Condition at Discharge: Stable Plan - Discharge Summary New Discharge Prescriptions: New Nitroglycerin Sl Tabs [Nitrostat] 0.4 mg SUBLINGUAL Q5M PRN tab PRN Reason: Chest Pain Continue Metoprolol Tartrate [Lopressor] 50 mg PO BID Multivitamins, Thera [Multivitamin (formulary)] 1 tab PO DAILY Losartan [Cozaar] 50 mg PO HS Dorena-3 Fatty Acids/Fish Oil [Fish Oil 1,000 mg Softgel] 1 cap PO DAILY Aspirin 81 mg PO DAILY Zolpidem [Ambien] 5 mg PO HS PRN PRN Reason: Insomnia Lutein 6 mg PO DAILY Atorvastatin [Lipitor] 20 mg PO HS Magnesium Oxide [Mag-Ox] 400 mg PO DAILY metFORMIN HCL [Glucophage] 500 mg PO DAILY Ranitidine HCl [Zantac] 150 mg PO DAILY Losartan Potassium 100 mg PO DAILY Loperamide HCl [Imodium A-D] 2 mg PO DAILY Felodipine [Felodipine ER] 10 mg PO DAILY diphenhydrAMINE [Benadryl] 50 mg PO HS PRN PRN Reason: Insomnia Discharge Medication List Metoprolol Tartrate [Lopressor] 50 mg PO BID 05/06/14 [History] Losartan [Cozaar] 50 mg PO HS 09/24/14 [History] Multivitamins, Thera [Multivitamin (formulary)] 1 tab PO DAILY 09/24/14 [History ] Dorena-3 Fatty Acids/Fish Oil [Fish Oil 1,000 mg Softgel] 1 cap PO DAILY [History] Aspirin 81 mg PO DAILY 01/28/15 [History] Atorvastatin [Lipitor] 20 mg PO HS 01/28/15 [History] Lutein 6 mg PO DAILY 01/28/15 [History] Zolpidem [Ambien] 5 mg PO HS PRN 01/28/15 [History] Felodipine [Felodipine ER] 10 mg PO DAILY 04/21/17 [History] Loperamide HCl [Imodium A-D] 2 mg PO DAILY 04/21/17 [History] Losartan Potassium 100 mg PO DAILY 04/21/17 [History] Magnesium Oxide [Mag-Ox] 400 mg PO DAILY 04/21/17 [History] Ranitidine HCl [Zantac] 150 mg PO DAILY 04/21/17 [History] diphenhydrAMINE [Benadryl] 50 mg PO HS PRN 04/21/17 [History] metFORMIN HCL [Glucophage] 500 mg PO DAILY 04/21/17 [History] Nitroglycerin Sl Tabs [Nitrostat] 0.4 mg SUBLINGUAL Q5M PRN tab 04/22/17 [Rx] Follow up Appointment(s)/Referral(s): Madelin Szymanski MD [Primary Care Provider] - 1-2 days Deandre Burks MD [STAFF PHYSICIAN] - 1 Week Patient Instructions/Handouts: Palpitations (GEN), Holter Monitoring (GEN) Care Plan Goals (MU): Holter monitor placed, follow up with cardiology for results Discharge Disposition: HOME SELF-CARE
== END 2017-04-22 14:51 | disposition home or self-care (01) ==
LOC: EC 10:57 → 3OBS 16:44
PROVIDERS: ADMIT Internal Medicine; ATTEND Internal Medicine
DX: I20.0 Unstable angina (principal); K21.9 Gastro-esophageal reflux disease without esophagitis; N18.3 Chronic kidney disease, stage 3 (moderate); I12.9 Hypertensive chronic kidney disease with stage 1 through stage 4 chronic kidney disease, or unspecified chronic kidney disease; G47.33 Obstructive sleep apnea (adult) (pediatric); E78.5 Hyperlipidemia, unspecified; E11.22 Type 2 diabetes mellitus with diabetic chronic kidney disease; E07.9 Disorder of thyroid, unspecified; G62.9 Polyneuropathy, unspecified; F41.9 Anxiety disorder, unspecified; I89.0 Lymphedema, not elsewhere classified; E66.9 Obesity, unspecified; Z79.82 Long term (current) use of aspirin; Z79.899 Other long term (current) drug therapy; Z79.84 Long term (current) use of oral hypoglycemic drugs; Z88.5 Allergy status to narcotic agent; Z88.0 Allergy status to penicillin; Z86.73 Personal history of transient ischemic attack (TIA), and cerebral infarction without residual deficits; Z87.891 Personal history of nicotine dependence; Z86.19 Personal history of other infectious and parasitic diseases; Z86.14 Personal history of Methicillin resistant Staphylococcus aureus infection; Z82.49 Family history of ischemic heart disease and other diseases of the circulatory system; Z68.38 Body mass index [BMI] 38.0-38.9, adult; Z99.89 Dependence on other enabling machines and devices
CPT/HCPCS: 36415; 71020; 78452; 80048; 80053; 80061; 82550; 82553; 83036; 83735; 84443; 84484; 85025; 85610; 85730; 93005; 93017; 93225; 93226; 93306; 96365; 96366; 96376; 99291

== ENCOUNTER → 2017-05-20 | Outpatient (CLI) | payer MEDICARE, BC ==
--- NOTE | 2017-05-20 15:37 | US ---
EXAMINATION TYPE: US venous doppler duplex LE DATE OF EXAM: 05/20/2017 2:53 PM COMPARISON: NONE CLINICAL HISTORY: M79.605 Pain In Leg. Bilat leg swelling/ wounds lower legs, now healing SIDE PERFORMED: Bilateral LOWER EXTREMITY VENOUS INSUFFICIENCY 1) Color flow is present and patency is documented in the following vessels. No DVT or SVT is noted . EIV Common Femoral Vein Deep Femoral Vein Femoral Vein Popliteal Vein Proximal Calf Veins Greater Saph Vein Upper Small Saph Vein 2) There is venous reflux noted at the following venous levels: Bilateral proximal superficial femo ral veins IMPRESSION: No ultrasound evidence for acute DVT in either lower extremity. Some limited bilateral ve nous reflux is seen as noted above.
--- NOTE | 2017-05-26 12:22 | P.ARTDOP ---
Arterial Doppler LOWER EXTREMITY ARTERIAL DOPPLER: DATE OF SERVICE: 05/20/2017 Reason for study: Bilateral leg wounds. Doppler waveforms: Multiphasic bilaterally throughout. Pulse volume recording: Normal configuration. Pressure gradients: None. Ankle-brachial indices: Greater than 1 bilaterally. Toe pressures: 123 on the right, 125 on the left Impression: Normal study.
== END | disposition home or self-care (01) ==
LOC: RADUSWWP 14:22
PROVIDERS: ATTEND Family Medicine
DX: M79.605 Pain in left leg (principal); R60.0 Localized edema
CPT/HCPCS: 93923; 93970

== ENCOUNTER → 2018-01-20 | Outpatient (CLI) | payer MEDICARE, BC ==
--- NOTE | 2018-01-20 16:09 | PN ---
PROGRESS NOTE DATE OF SERVICE: 01/20/2019 87-year-old lady has been followed in [facility] for treatment of obstructive sleep apnea-hypopnea syndrome. The patient continued to use her CPAP equipment every night for the whole night without significant problems. Sleeps okay. Sleeps well with the machine. Does not feel sleepiness during the day. [place] Sleepiness Scale is 6. I checked her CPAP unit. She demonstrated great compliance 29/30 nights for more than 4 hours. CPAP pressure is 10 cm of water. The machine does not have options to see apnea-hypopnea index. Patient is on treatment with Ambien 2.5 mg at bedtime. MEDICATIONS: Baby aspirin, atorvastatin, Benadryl, losartan, metformin, metoprolol, ranitidine, vitamin D supplement, [facility]-3 supplement, felodipine. PHYSICAL EXAM: Patient in no distress. BP 137/94, HR 72, RR 16, height 5 and 2, weight 222, BMI 40.6, temp 96.9, oxygen saturation on room air 96%. Oropharynx extremely low position of soft palate. ABDOMEN: Obese. Neck Supple, no JVD. Thyroid is not palpable. LUNGS Clear to percussion and to auscultation. Good air exchange. No wheezing or rhonchi. HEART S1, S2 regular. No murmurs, gallops, or rubs. ABDOMEN : Obese. Soft and nontender. Bowel sounds are present. No organomegaly appreciated. EXTREMITIES: Extremities 1 to 2+ bilateral ankle edema. ORE DIGGER Awake, alert, and oriented X3. Cranial nerves 2 to 7 intact. There is no fasciculation or atrophy. noted. No focal deficits observed. IMPRESSION: 1. Obstructive sleep apnea-hypopnea syndrome. The patient demonstrated 100% compliance with treatment benefitting from treatment. 2. Obesity. 3. Hypertension. 4. Diabetes mellitus. 5. End-stage renal disease stage III. 6. Acid reflux. 7. Swelling of the legs 1 to 2+ ankle edema. 8. History of difficulties to initiate sleep on control with Ambien 2.5 mg at night. PLAN: 1. Patient will continue to use her CPAP equipment every night for the whole night. 2. Prescription for all necessary CPAP supplies including mask, tube filters, CPAP unit will be checked. If necessary, we will replace it with a new unit. 3. No driving if feeling sleepiness. Thank you very much for allowing me to participate in management of your patient. Sincerely, Javi Eugene MD, PhD, FAASM Diplomat of [employer] Manager of [facility] [place] / BETTYE: [id number] /
== END | disposition home or self-care (01) ==
LOC: SLEEP 14:30
PROVIDERS: ATTEND Internal Medicine
DX: G47.33 Obstructive sleep apnea (adult) (pediatric) (principal); E66.9 Obesity, unspecified; I12.9 Hypertensive chronic kidney disease with stage 1 through stage 4 chronic kidney disease, or unspecified chronic kidney disease; E11.22 Type 2 diabetes mellitus with diabetic chronic kidney disease; N18.3 Chronic kidney disease, stage 3 (moderate); K21.9 Gastro-esophageal reflux disease without esophagitis; R60.0 Localized edema; Z79.84 Long term (current) use of oral hypoglycemic drugs; Z79.82 Long term (current) use of aspirin; Z68.41 Body mass index [BMI] 40.0-44.9, adult; Z99.89 Dependence on other enabling machines and devices; Z79.899 Other long term (current) drug therapy

== ENCOUNTER → 2018-07-06 | Outpatient (CLI) | payer MEDICARE, BC ==
--- NOTE | 2018-07-06 12:56 | US ---
EXAMINATION TYPE: US kidneys/renal and bladder DATE OF EXAM: 07/06/2018 COMPARISON: 04/13/2014 CLINICAL HISTORY: Stage 4 chronic kidney disease. Difficult exam due to patient body habitus and over lying bowel gas EXAM MEASUREMENTS: Right Kidney: 10.0 x 4.8 x 3.5 cm Left Kidney: 9.5 x 3.4 x 3.6 cm Right Kidney: No hydronephrosis. Cystic area visualized upper pole measuring 2.0 x 1.6 x 1.5 cm Left Kidney: No hydronephrosis. Loss of corticomedullary differentiation. Area on upper pole visualiz ed on previous ultrasound is not seen on today's exam Bladder: Not distended, patient states she was told by her doctor that she did not have to fill her b ladder Bilateral Jets seen: No, see above IMPRESSION: Findings suggest medical renal disease.
== END | disposition home or self-care (01) ==
LOC: RADUSWWP 11:47
PROVIDERS: ATTEND Family Medicine
DX: N18.4 Chronic kidney disease, stage 4 (severe) (principal)
CPT/HCPCS: 76770

== ENCOUNTER → 2018-11-24 | Outpatient (CLI) | payer MEDICARE, BC ==
--- NOTE | 2018-11-24 16:37 | PN ---
PROGRESS NOTE DATE OF SERVICE: 11/24/2018 88-year-old lady has been followed in the [facility] for treatment of obstructive sleep apnea-hypopnea syndrome. The patient successfully continuing to use her CPAP equipment every night for the whole night. No problems related to mask fitting, pressure or humidification. No snoring with the machine. Machine is old more than 5 years old. [place] Sleepiness Scale today is 9. I checked patient's CPAP unit. CPAP pressure is 10 cm of water. RAMP started from 5 cm of water. Usage is 100% of nights more than 4 hours. Average usage is 7.54 hours per night. The machine does not have information about apnea-hypopnea index. MEDICATIONS: Baby aspirin, atorvastatin, Benadryl, losartan, metoprolol, ranitidine, felodipine, omega-3 supplement. PHYSICAL EXAM: Patient in no distress. BP 145/67, HR 68, RR 16, height 5 feet 2 inches, weight 228.8, body mass index 41.7, temperature 97.2, oxygen saturation at room air 97%. Oropharynx: Extremely low position of soft palate. Mallampati 4. Abdomen slightly obese. Neck Supple, no JVD. Thyroid is not palpable. LUNGS Clear to percussion and to auscultation. Good air exchange. No wheezing or rhonchi. HEART S1, S2 regular. No murmurs, gallops, or rubs. ABDOMEN: Slightly obese. Soft and nontender. Bowel sounds are present. No organomegaly appreciated. EXTREMITIES No clubbing or cyanosis. CERTIFIED ORTHOPTIST Awake, alert, and oriented X3. Cranial nerves 2 to 7 intact. There is no fasciculation or atrophy. noted. No focal deficits observed. IMPRESSION: 1. Obstructive sleep apnea-hypopnea syndrome. Patient demonstrated 100% compliance with treatment benefitting from treatment. 2. Obesity. 3. Hypertension. 4. Diabetes mellitus. 5. End-stage renal disease, stage III. 6. Acid reflux. 7. Difficult to initiates sleep, on control with Ambien 2.5 mg at bedtime. PLAN: 1. Patient will continue to use CPAP treatment every night for the whole night. 2. Prescription to replace CPAP unit. 3. Losing weight. 4. Sleep hygiene with regular time in bed for at least 8 hours. 5. No driving if feeling sleepiness. Thank you very much for allowing me to participate in management of your patient. Sincerely, Javi Eugene MD, PhD, FAASM Diplomat of [employer] Insurance Underwriter of [facility] [place] MM[employer] / BETTYE: [id number] /
== END | disposition home or self-care (01) ==
LOC: SLEEP 14:59
PROVIDERS: ATTEND Internal Medicine
DX: G47.33 Obstructive sleep apnea (adult) (pediatric) (principal); E66.9 Obesity, unspecified; I12.0 Hypertensive chronic kidney disease with stage 5 chronic kidney disease or end stage renal disease; E11.22 Type 2 diabetes mellitus with diabetic chronic kidney disease; N18.6 End stage renal disease; K21.9 Gastro-esophageal reflux disease without esophagitis; Z99.89 Dependence on other enabling machines and devices; Z79.82 Long term (current) use of aspirin; Z79.899 Other long term (current) drug therapy; Z68.41 Body mass index [BMI] 40.0-44.9, adult

== ENCOUNTER → 2019-02-02 | Outpatient (CLI) | payer MEDICARE, BC ==
--- NOTE | 2019-02-02 14:03 | PN ---
PROGRESS NOTE DATE OF SERVICE: 02/02/2019 An 89-year-old lady who has been followed in the Sleep Center for treatment of obstructive sleep apnea-hypopnea syndrome. Recently, patient received her new CPAP unit and this is her first visit after she received that CPAP machine. Patient continued to use her CPAP equipment every night for the whole night without any significant problems related to mask fitting, pressure or humidification. [place] Sleepiness Scale today is 9. I checked CPAP unit. CPAP pressure is 10 cm of water. Usage is 100% of nights more than 4 hours, average use is 7.9 hours. Leak is only 1 L/minute. Apnea-hypopnea index for the last month 8.8 and for the last night 10.1. MEDICATIONS: Baby aspirin, Benadryl, atorvastatin, losartan, metoprolol, ranitidine, felodipine, omega-3 supplement. PHYSICAL EXAM: Patient in no distress. BP 158/88, HR 78, RR 18, oxygen saturation at room air 96%. Weight 230 pounds. OROPHARYNX: Extremely low soft palate, Mallampati 4. ABDOMEN: Obese. Neck Supple, no JVD. Thyroid is not palpable. LUNGS Clear to percussion and to auscultation. Good air exchange. No wheezing or rhonchi. HEART S1, S2 regular. No murmurs, gallops, or rubs. EXTREMITIES No clubbing or cyanosis. 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 Cranial nerves 2 to 7 intact. There is no fasciculation or atrophy. noted. No focal deficits observed. IMPRESSION: 1. Obstructive sleep apnea-hypopnea syndrome. Patient demonstrated 100% compliance with treatment, benefitting from treatment. 2. Mild increasing of apnea/hypopnea index by the reading from the machine, 8.8 for the last month and 10.1 for the last night. 3. Hypertension. 4. Diabetes mellitus. 5. Obesity. 6. End-stage renal disease, stage III. 7. Acid reflux. 8. Some difficulties to initiate sleep on control with Ambien 2.5 mg at bedtime. PLAN: 1. I will increase CPAP pressure to 11 cm of water. 2. Losing weight. 3. Sleep hygiene with regular time in bed for at least 8 hours. 4. No driving if feeling sleepiness. Thank you very much for allowing me to participate in the management of your patient. Sincerely, Javi Eugene MD, PhD, FAASM Diplomat of [employer] Administrative Support Coordinator of [facility] [place] MM[employer] / BETTYE: [id number] /
== END ==
LOC: SLEEP 13:11
PROVIDERS: ATTEND Internal Medicine
DX: G47.33 Obstructive sleep apnea (adult) (pediatric) (principal); E66.9 Obesity, unspecified; K21.9 Gastro-esophageal reflux disease without esophagitis; E11.22 Type 2 diabetes mellitus with diabetic chronic kidney disease; I12.9 Hypertensive chronic kidney disease with stage 1 through stage 4 chronic kidney disease, or unspecified chronic kidney disease; N18.3 Chronic kidney disease, stage 3 (moderate); Z99.89 Dependence on other enabling machines and devices; Z79.82 Long term (current) use of aspirin; Z79.899 Other long term (current) drug therapy

== ENCOUNTER 2019-02-08 16:47 | Emergency (ER) | payer MEDICARE, BC ==
[2019-02-08] MEDS ORDERED: SODIUM CHLORIDE 0.9% 500 ML 500 ML IV STA (17:39)
[2019-02-08 18:18] LABS: Basophils # (A) 0.1 k/uL (0-0.2); Basophils % (A) 1 %; Eosinophils # (A) 0.2 k/uL (0-0.7); Eosinophils % (A) 3 %; HCT 40.2 % (34.0-46.0); HGB 13.3 gm/dL (11.4-16.0); Lymphocytes # (A) 1.9 k/uL (1.0-4.8); Lymphocytes % (A) 19 %; MCH 29.4 pg (25.0-35.0); MCHC 32.9 g/dL (31.0-37.0); MCV 89.2 fL (80.0-100.0); Mean Platelet Volume 7.3; Monocytes # (A) 0.5 k/uL (0-1.0); Monocytes % (A) 5 %; Neutrophils # (A) 6.7 k/uL (1.3-7.7); Neutrophils % (A) 70 %; Platelet Count 272 k/uL (150-450); RBC 4.51 m/uL (3.80-5.40); RDW 14.4 % (11.5-15.5); WBC 9.6 k/uL (3.8-10.6)
--- NOTE | 2019-02-08 18:19 | ED ---
General Adult HPI - General Source: patient, RN notes reviewed Mode of arrival: wheelchair Limitations: no limitations <Taj Zhong - Last Filed: 02/08/19 20:13> <Yinka Solomon - Last Filed: 02/08/19 20:30> - General Chief complaint: Dizziness Stated complaint: Weakness Time Seen by Provider: 02/08/19 17:22 - History of Present Illness Initial comments: 89-year-old female with a past medical history of dementia, TIA, peripheral neuropathy, diabetes, CKD presents to the emergency department for a chief comp laint of lightheadedness 4 days. Patient states this has actually been going on for several months but worse in the past 4 days. States that she thinks it is her medications that could be causing this. She denies any dizziness or visual changes. Denies any nausea or vomiting. States she is otherwise feeling well. Denies any head injuries or headaches.Patient has no other complaints at this time including shortness of breath, chest pain, abdominal pain, nausea or vomiting, headache, or visual changes. (Taj Zhong) - Related Data Home Medications Medication Instructions Recorded Confirmed Metoprolol Tartrate [Lopressor] 75 mg PO BID 05/06/14 02/08/19 Aspirin 81 mg PO DAILY 01/28/15 02/08/19 Atorvastatin [Lipitor] 20 mg PO HS 01/28/15 02/08/19 Zolpidem [Ambien] 2.5 mg PO HS PRN 01/28/15 02/08/19 Felodipine [Felodipine ER] 10 mg PO DAILY 04/21/17 02/08/19 Loperamide HCl [Imodium A-D] 2 mg PO DAILY 04/21/17 02/08/19 Losartan Potassium 100 mg PO QAM 04/21/17 02/08/19 Ranitidine HCl [Zantac] 150 mg PO DAILY 04/21/17 02/08/19 diphenhydrAMINE [Benadryl] 50 mg PO HS PRN 04/21/17 02/08/19 Previous Rx's Medication Instructions Recorded Meclizine [Antivert] 25 mg PO TID PRN #9 tab 02/08/19 Allergies Allergy/AdvReac Type Severity Reaction Status Date / Time Penicillins Allergy Anaphylaxis Verified 02/08/19 19:13 codeine AdvReac Severe Nausea, Verified 02/08/19 19:13 Headache tramadol HCl [From Ultram] AdvReac Severe Nausea, Verified 02/08/19 19:13 Headache iodine AdvReac "THYROID Verified 02/08/19 19:13 ISSUES" Review of Systems ROS Other: All systems not noted in ROS Statement are negative. <Taj Zhong - Last Filed: 02/08/19 20:13> ROS Other: All systems not noted in ROS Statement are negative. <Yinka Solomon - Last Filed: 02/08/19 20:30> ROS Statement: Those systems with pertinent positive or pertinent negative responses have been documented in the HPI. Past Medical History Past Medical History: Dementia Additional Past Medical History / Comment(s): HX OF : TIA, PERIPHERAL NEUOPATHY, DIET CONTROLLED DIABETES, SWELLING IN LEGS AND FEET- WEARS COMPRESSION STOCKINGS. HX OF VIRAL HEPATITIS (1958).USES C-PAP MACHINE @ HOME. She does not know her CPAP settings. CKDIII History of Any Multi-Drug Resistant Organisms: MRSA Date of last positivie culture/infection: 01/28/2015 MDRO Source:: sputum Past Surgical History: Appendectomy, Joint Replacement, Orthopedic Surgery Additional Past Surgical History / Comment(s): 10/09/14 Total L knee arthroplasty. THYROID AND PARA THYROID SURG (2011), RT ROTATOR CUFF(2002), ROCAEL CATARACTS, RT HAND(2012), OVARIAN CYST, ECTOPIC PREGANCY, RT KNEE REPLACEMENT (1998), left knee Oct 2014, "electrical problem in heart" Past Anesthesia/Blood Transfusion Reactions: No Reported Reaction Additional Past Anesthesia/Blood Transfusion Reaction / Comment(s): STATES SEVERE POST NASAL DRIP . Past Psychological History: Anxiety Smoking Status: Former smoker Past Alcohol Use History: Rare Past Drug Use History: None Reported - Past Family History Father Family Medical History: Cancer Additional Family Medical History / Comment(s): ESOPHAGEAL CANCER Mother Family Medical History: Coronary Artery Disease (CAD) Additional Family Medical History / Comment(s): Mother at 100 yrs of age. <Taj Zhong P - Last Filed: 02/08/19 20:13> General Exam Limitations: no limitations General appearance: alert, in no apparent distress Head exam: Present: atraumatic, normocephalic, normal inspection Eye exam: Present: normal appearance, PERRL, EOMI. Absent: scleral icterus, conjunctival injection, periorbital swelling ENT exam: Present: normal exam, normal oropharynx, mucous membranes moist, TM's normal bilaterally, normal external ear exam Neck exam: Present: normal inspection, full ROM. Absent: tenderness, meningismus, lymphadenopathy Respiratory exam: Present: normal lung sounds bilaterally. Absent: respiratory distress, wheezes, rales, rhonchi, stridor Cardiovascular Exam: Present: regular rate, normal rhythm, normal heart sounds. Absent: bradycardia, tachycardia, irregular rhythm GI/Abdominal exam: Present: soft, normal bowel sounds. Absent: distended, tenderness, guarding, rebound, rigid Neurological exam: Present: alert, oriented X3, CN II-XII intact, normal gait (Normal gait, no difficulty in relating.), other (ECS 15) Psychiatric exam: Present: normal affect, normal mood <Taj Zhong - Last Filed: 02/08/19 20:13> Course <Yinka Solomon - Last Filed: 02/08/19 20:30> Vital Signs 02/08/19 02/08/19 16:59 18:52 Temperature 98.9 F Pulse Rate 88 66 Respiratory 18 16 Rate Blood Pressure 151/69 162/67 O2 Sat by Pulse 95 97 Oximetry - Reevaluation(s) Reevaluation #1: 02/08/19 20:24 PA supervision: I proceeded [id number] evaluation the patient she does present with complaints of dizziness was gets worse when she gets up from a sitting or lying position this is been going on at least 3 days. It does not really seem to get too much worse with movement of her eyes are had she has no focal weakness no headache no new blurry vision no new hearing deficits as she does have a history of hearing deficits in the past for which she's been worked up. She does states she may have had small strokes years ago. No other complaints this time no fevers chills sweats falls or other symptoms. She was evaluated in this department the imaging and lab work appeared be within recently normal limits she does have a history of renal insufficiency or she's followed by nephrology. She was offered CAT scan due to her renal function IV contrast does not indicated. Patient was offered CT but does not want one at this time. She would rather go home and follow-up with her doctor I'll for MRI. We did offer Antivert he also suggested she increase oral fluids. She will follow-up (Yinka Solomon) EKG Findings - EKG Comments: EKG Findings:: Normal sinus rhythm, ventricular rate 69, NV interval 186, QTC 441 <Taj Zhong - Last Filed: 02/08/19 20:13> Medical Decision Making - Lab Data Result diagrams: 02/08/19 18:00 02/08/19 18:00 <Taj Zhong - Last Filed: 02/08/19 20:13> - Lab Data Result diagrams: 02/08/19 18:00 02/08/19 18:00 <Yinka Solomon - Last Filed: 02/08/19 20:30> - Lab Data Lab Results 02/08/19 02/08/19 02/08/19 Range/Units 18:00 18:00 18:00 WBC 9.6 (3.8-10.6) k/uL RBC 4.51 (3.80-5.40) m/uL Hgb 13.3 (11.4-16.0) gm/dL Hct 40.2 (34.0-46.0) % MCV 89.2 (80.0-100.0) fL MCH 29.4 (25.0-35.0) pg MCHC 32.9 (31.0-37.0) g/dL RDW 14.4 (11.5-15.5) % Plt Count 272 (150-450) k/uL Neutrophils % 70 % Lymphocytes % 19 % Monocytes % 5 % Eosinophils % 3 % Basophils % 1 % Neutrophils # 6.7 (1.3-7.7) k/uL Lymphocytes # 1.9 (1.0-4.8) k/uL Monocytes # 0.5 (0-1.0) k/uL Eosinophils # 0.2 (0-0.7) k/uL Basophils # 0.1 (0-0.2) k/uL PT (9.0-12.0) sec INR (<1.2) APTT (22.0-30.0) sec Sodium 141 (137-145) mmol/L Potassium 5.3 H (3.5-5.1) mmol/L Chloride 107 (98-107) mmol/L Carbon Dioxide 22 (22-30) mmol/L Anion Gap 12 mmol/L BUN 27 H (7-17) mg/dL Creatinine 1.42 H (0.52-1.04) mg/dL Est GFR (CKD-EPI)AfAm 39 (>60 ml/min/1.73 sqM) Est GFR (CKD-EPI)NonAf 33 (>60 ml/min/1.73 sqM) Glucose 114 H (74-99) mg/dL Calcium 10.0 (8.4-10.2) mg/dL Phosphorus 3.9 (2.5-4.5) mg/dL Magnesium 2.0 (1.6-2.3) mg/dL Total Bilirubin 0.4 (0.2-1.3) mg/dL AST 27 (14-36) U/L ALT 16 (9-52) U/L Alkaline Phosphatase 149 H (38-126) U/L Troponin I <0.012 (0.000-0.034) ng/mL Total Protein 8.3 H (6.3-8.2) g/dL Albumin 4.6 (3.5-5.0) g/dL Urine Color Urine Appearance (Clear) Urine pH (5.0-8.0) Ur Specific [place] (1.001-1.035) Urine Protein (Negative) Urine Glucose (UA) (Negative) Urine Ketones (Negative) Urine Blood (Negative) Urine Nitrite (Negative) Urine Bilirubin (Negative) Urine Urobilinogen (<2.0) mg/dL Ur Leukocyte Esterase (Negative) Urine RBC (0-5) /hpf Urine WBC (0-5) /hpf Ur Squamous Epith Cells (0-4) /hpf Urine Bacteria (None) /hpf Urine Mucus (None) /hpf 02/08/19 02/08/19 Range/Units 18:00 18:37 WBC (3.8-10.6) k/uL RBC (3.80-5.40) m/uL Hgb (11.4-16.0) gm/dL Hct (34.0-46.0) % MCV (80.0-100.0) fL MCH (25.0-35.0) pg MCHC (31.0-37.0) g/dL RDW (11.5-15.5) % Plt Count (150-450) k/uL Neutrophils % % Lymphocytes % % Monocytes % % Eosinophils % % Basophils % % Neutrophils # (1.3-7.7) k/uL Lymphocytes # (1.0-4.8) k/uL Monocytes # (0-1.0) k/uL Eosinophils # (0-0.7) k/uL Basophils # (0-0.2) k/uL PT 10.0 (9.0-12.0) sec INR 0.9 (<1.2) APTT 24.1 (22.0-30.0) sec Sodium (137-145) mmol/L Potassium (3.5-5.1) mmol/L Chloride (98-107) mmol/L Carbon Dioxide (22-30) mmol/L Anion Gap mmol/L BUN (7-17) mg/dL Creatinine (0.52-1.04) mg/dL Est GFR (CKD-EPI)AfAm (>60 ml/min/1.73 sqM) Est GFR (CKD-EPI)NonAf (>60 ml/min/1.73 sqM) Glucose (74-99) mg/dL Calcium (8.4-10.2) mg/dL Phosphorus (2.5-4.5) mg/dL Magnesium (1.6-2.3) mg/dL Total Bilirubin (0.2-1.3) mg/dL AST (14-36) U/L ALT (9-52) U/L Alkaline Phosphatase (38-126) U/L Troponin I (0.000-0.034) ng/mL Total Protein (6.3-8.2) g/dL Albumin (3.5-5.0) g/dL Urine Color Light Yellow Urine Appearance Clear (Clear) Urine pH 7.0 (5.0-8.0) Ur Specific [place] 1.015 (1.001-1.035) Urine Protein 2+ H (Negative) Urine Glucose (UA) Negative (Negative) Urine Ketones Negative (Negative) Urine Blood Negative (Negative) Urine Nitrite Negative (Negative) Urine Bilirubin Negative (Negative) Urine Urobilinogen <2.0 (<2.0) mg/dL Ur Leukocyte Esterase Small H (Negative) Urine RBC 2 (0-5) /hpf Urine WBC 5 (0-5) /hpf Ur Squamous Epith Cells 2 (0-4) /hpf Urine Bacteria Rare H (None) /hpf Urine Mucus Rare H (None) /hpf Disposition Is patient prescribed a controlled substance at d/c from ED?: No Time of Disposition: 20:16 <Taj Zhong - Last Filed: 02/08/19 20:13> <Yinka Solomon - Last Filed: 02/08/19 20:30> Clinical Impression: Light headedness Disposition: HOME SELF-CARE Instructions (If sedation given, give patient instructions): Dizziness (ED) Additional Instructions: Please take Antivert as directed. Please follow-up with primary care in 1-2 days. Please return here to the emergency department if you're having any worsening symptoms. Prescriptions: Meclizine [Antivert] 25 mg PO TID PRN #9 tab PRN Reason: dizzy Referrals: Madelin Szymanski MD [Primary Care Provider] - 1-2 days
[2019-02-08 18:29] LABS: Appearance,Urine Clear (Clear); Bacteria,Urine Rare /hpf; Bilirubin,Urine Negative (Negative); Blood,Urine Negative (Negative); Color,Urine Light Yellow; Glucose,Urine (UA) Negative (Negative); Ketones,Urine Negative (Negative); Leukocyte Esterase,Urine Small (Negative); Mucus,Urine Rare /hpf; Nitrite,Urine Negative (Negative); Protein,Urine 2+ (Negative); RBC,Urine 2 /hpf (0-5); Specific Gravity,Urine 1.015 (1.001-1.035); Squamous Epithelial Cell,Urine 2 /hpf (0-4); Urobilinogen,Urine <2.0 mg/dL (<2.0); WBC,Urine 5 /hpf (0-5)
--- NOTE | 2019-02-08 18:37 | XR ---
EXAMINATION TYPE: XR chest 2V DATE OF EXAM: 02/08/2019 COMPARISON: 04/21/2017 HISTORY: Dizziness TECHNIQUE: Frontal and lateral views of the chest are obtained. FINDINGS: There is no heart failure nor confluent pneumonic infiltrate. There are chest leads. Costo phrenic angles are clear. Thoracic aorta shows mild atheromatous change. There is spurring in the tho racic spine. IMPRESSION: No active cardiopulmonary disease. No change.
[2019-02-08 18:38] LABS: Albumin 4.6 g/dL (3.5-5.0); Phosphorus 3.9 mg/dL (2.5-4.5); Potassium 5.3 mmol/L (3.5-5.1); Total Bilirubin 0.4 mg/dL (0.2-1.3); Total Protein 8.3 g/dL (6.3-8.2)
[2019-02-08 19:23] LABS: INR 0.9 (<1.2); Partial Thromboplastin Time 24.1 sec (22.0-30.0)
[2019-02-08] MEDS ORDERED: MECLIZINE 12.5 MG TAB PO STA (20:55)
[2019-02-08 21:10] VITALS: BP 193/84; PULSE 67; RESP 18; TEMP 97.4
== END 2019-02-08 21:09 | disposition home or self-care (01) ==
LOC: EC 16:47
DX: R42 Dizziness and giddiness (principal); R53.1 Weakness; E11.22 Type 2 diabetes mellitus with diabetic chronic kidney disease; N18.3 Chronic kidney disease, stage 3 (moderate); Z87.891 Personal history of nicotine dependence; Z79.899 Other long term (current) drug therapy; Z79.82 Long term (current) use of aspirin; Z88.0 Allergy status to penicillin; Z88.5 Allergy status to narcotic agent; Z88.6 Allergy status to analgesic agent; Z88.8 Allergy status to other drugs, medicaments and biological substances; Z86.14 Personal history of Methicillin resistant Staphylococcus aureus infection; Z96.652 Presence of left artificial knee joint; Z98.42 Cataract extraction status, left eye; Z98.41 Cataract extraction status, right eye; Z99.89 Dependence on other enabling machines and devices
CPT/HCPCS: 36415; 71046; 80053; 81001; 83735; 84100; 84484; 85025; 85610; 85730; 93005; 96360; 99284

== ENCOUNTER → 2019-02-21 | Outpatient (CLI) | payer MEDICARE, BC ==
--- NOTE | 2019-02-21 14:53 | MR ---
MR brain without contrast HISTORY: Lightheadedness Multiplanar multisequence imaging through the brain Correlation MR brain 09/02/2010 There are scattered and confluent hyperintensities on inversion recovery T2-weighted sequences within the periventricular, pericallosal, sub and juxtacortical white matter. Right frontal lesion has incr eased in size and now measures approximately 12 mm in AP dimension compared to prior when it measured 10 mm on axial image 20. There are greater than 50 lesions present. The orbits show a symmetric appe arance. Paranasal sinuses and mastoid air cells aware aerated. There are normal vascular flow voids. Corpus callosum, pituitary, cervical medullary junction show a stable appearance, cerebellopontine an gles show no mass. There is no restricted diffusion to suggest subacute ischemia. Cortical atrophy is likely age-related. There is no hemorrhage or hydrocephalus. IMPRESSION: Age-related changes of atrophy and probable chronic small vessel ischemia. No evident sub acute infarct.
== END | disposition home or self-care (01) ==
LOC: RADMRIMAIN 13:37
PROVIDERS: ATTEND Family Medicine
DX: G31.1 Senile degeneration of brain, not elsewhere classified (principal)
CPT/HCPCS: 70551

== ENCOUNTER → 2019-03-02 | Outpatient (CLI) | payer MEDICARE, BC ==
--- NOTE | 2019-03-02 16:02 | US ---
EXAMINATION TYPE: US carotid duplex BILAT DATE OF EXAM: 03/02/2019 COMPARISON: NONE CLINICAL HISTORY: R42 Dizziness. EXAM MEASUREMENTS: RIGHT: Peak Systolic Velocity (PSV) cm/sec ----- Right CCA: 88.7 ----- Right ICA: 77.4 ----- Right ECA: 79.0 ICA/CCA ratio: 0.9 RIGHT: End Diastole cm/sec ----- Right CCA: 14.4 ----- Right ICA: 16.0 ----- Right ECA: 9.5 LEFT: Peak Systolic Velocity (PSV) cm/sec ----- Left CCA: 74.9 ----- Left ICA: 99.5 ----- Left ECA: 67.2 ICA/CCA ratio: 1.3 LEFT: End Diastole cm/sec ----- Left CCA: 14.1 ----- Left ICA: 21.9 ----- Left ECA: 6.3 VERTEBRALS (direction of flow): Right Vertebral: Antegrade Left Vertebral: Antegrade Rhythm: Normal Mild to moderate amount of plaque visualized bilaterally. No elevated velocities, no significant sten osis IMPRESSION: Mild to moderate degree of grayscale atheromatous plaquing with no sonographically evide nt hemodynamically significant stenosis within either visualized carotid arterial system. Criteria for Assigning % of Stenosis / Diameter reduction (Estimation based on the indirect measurements of the internal carotid artery velocities (ICA PSV). 1. Normal (no stenosis)=ICA PSV < 125 cm/s: ratio < 2.0: ICA EDV<40 cm/s. 2. Less than 50% stenosis=ICA PSV < 125 cm/s: ratio < 2.0: ICA EDV<40 cm/s. 3. 50 to 69% stenosis=ICA PSV of 125 to 230 cm/s: ration 2.0 ? 4.0: ICA EDV 40-100 cm/s. 4. Greater than 70% stenosis to near occlusion= ICA PSV > 230 cm/s: ratio > 4.0: ICA EDV > 100 cm/s. 5. Near occlusion= ICA PSV velocities may be low or undetectable: variable ratio and ICA EDV. 6. Total occlusion=unable to detect flow.
== END | disposition home or self-care (01) ==
LOC: RADUSWWP 15:00
PROVIDERS: ATTEND Psychiatry & Neurology Neurology
DX: I65.22 Occlusion and stenosis of left carotid artery (principal)
CPT/HCPCS: 93880

== ENCOUNTER 2019-06-09 19:57 | Emergency (ER) | payer MEDICARE, BC ==
[2019-06-09 20:27] VITALS: RESP 18; TEMP 97
[2019-06-09 23:03] LABS: Basophils # (A) 0.2 k/uL (0-0.2); Basophils % (A) 2 %; Eosinophils # (A) 0.2 k/uL (0-0.7); Eosinophils % (A) 2 %; HCT 39.6 % (34.0-46.0); HGB 12.3 gm/dL (11.4-16.0); Lymphocytes # (A) 1.3 k/uL (1.0-4.8); Lymphocytes % (A) 17 %; MCH 28.8 pg (25.0-35.0); MCHC 31.2 g/dL (31.0-37.0); MCV 92.4 fL (80.0-100.0); Mean Platelet Volume 6.6; Monocytes # (A) 0.5 k/uL (0-1.0); Monocytes % (A) 6 %; Neutrophils # (A) 5.4 k/uL (1.3-7.7); Neutrophils % (A) 70 %; Platelet Count 251 k/uL (150-450); RBC 4.28 m/uL (3.80-5.40); RDW 13.9 % (11.5-15.5); WBC 7.7 k/uL (3.8-10.6)
[2019-06-09 23:05] LABS: Appearance,Urine Clear (Clear); Bacteria,Urine Rare /hpf; Bilirubin,Urine Negative (Negative); Blood,Urine Negative (Negative); Color,Urine Colorless; Glucose,Urine (UA) Negative (Negative); Ketones,Urine Negative (Negative); Leukocyte Esterase,Urine Negative (Negative); Nitrite,Urine Negative (Negative); Protein,Urine 1+ (Negative); RBC,Urine 1 /hpf (0-5); Specific Gravity,Urine 1.005 (1.001-1.035); Squamous Epithelial Cell,Urine <1 /hpf (0-4); Urobilinogen,Urine <2.0 mg/dL (<2.0); WBC,Urine 1 /hpf (0-5)
[2019-06-09 23:10] LABS: INR 0.9 (<1.2); Partial Thromboplastin Time 22.7 sec (22.0-30.0); Prothrombin Time 9.7 sec (9.0-12.0)
[2019-06-09 23:50] LABS: Albumin 4.1 g/dL (3.5-5.0); Calcium 9.8 mg/dL (8.4-10.2); Magnesium 1.8 mg/dL (1.6-2.3); Total Bilirubin 0.4 mg/dL (0.2-1.3); Total Protein 7.9 g/dL (6.3-8.2)
[2019-06-09 23:54] VITALS: BP 171/84; PULSE 74
--- NOTE | 2019-06-10 00:12 | ED ---
General Adult HPI - General Chief complaint: Upper Respiratory Infection Stated complaint: Generalized weakness Time Seen by Provider: 06/09/19 21:45 Source: patient Mode of arrival: ambulatory Limitations: no limitations - History of Present Illness Initial comments: 89-year-old female patient presents to the emergency department today for evaluation of upper respiratory infection and generalized weakness. Patient states that symptoms started a little over a week ago with nasal congestion and head pressure. Patient states that she has been taking Mucinex DM for the last 2 days. States it does seem to help somewhat. She denies any sore throat, cough, or congestion with this. Patient states this afternoon she had an overall feeling of weakness. States she's been having intermittent palpitations. She denies any dizziness, unilateral weakness, fever, or chills. States that she has been urinating more frequently today. She denies any chest pain, shortness of breath, abdominal pain, nausea, vomiting, or diarrhea. Patient denies any recent rash, constipation, back pain, numbness, tingling, dizziness, weakness, hematuria, dysuria, urinary urgency, headache, visual changes, or any other complaints. - Related Data Home Medications Medication Instructions Recorded Confirmed Metoprolol Tartrate [Lopressor] 75 mg PO BID 05/06/14 02/08/19 Aspirin 81 mg PO DAILY 01/28/15 02/08/19 Atorvastatin [Lipitor] 20 mg PO HS 01/28/15 02/08/19 Zolpidem [Ambien] 2.5 mg PO HS PRN 01/28/15 02/08/19 Felodipine [Felodipine ER] 10 mg PO DAILY 04/21/17 02/08/19 Loperamide HCl [Imodium A-D] 2 mg PO DAILY 04/21/17 02/08/19 Losartan Potassium 100 mg PO QAM 04/21/17 02/08/19 Ranitidine HCl [Zantac] 150 mg PO DAILY 04/21/17 02/08/19 diphenhydrAMINE [Benadryl] 50 mg PO HS PRN 04/21/17 02/08/19 Previous Rx's Medication Instructions Recorded Meclizine [Antivert] 25 mg PO TID PRN #9 tab 02/08/19 Allergies Allergy/AdvReac Type Severity Reaction Status Date / Time Penicillins Allergy Anaphylaxis Verified 06/09/19 20:27 codeine AdvReac Severe Nausea, Verified 06/09/19 20:27 Headache tramadol HCl [From Ultram] AdvReac Severe Nausea, Verified 06/09/19 20:27 Headache iodine AdvReac "THYROID Verified 06/09/19 20:27 ISSUES" Review of Systems ROS Statement: Those systems with pertinent positive or pertinent negative responses have been documented in the HPI. ROS Other: All systems not noted in ROS Statement are negative. Past Medical History Past Medical History: Dementia Additional Past Medical History / Comment(s): HX OF : TIA, PERIPHERAL NEUOPATHY, DIET CONTROLLED DIABETES, SWELLING IN LEGS AND FEET- WEARS COMPRESSION STOCKINGS. HX OF VIRAL HEPATITIS (1958).USES C-PAP MACHINE @ HOME. She does not know her CPAP settings. CKDIII History of Any Multi-Drug Resistant Organisms: MRSA Date of last positivie culture/infection: 01/28/2015 MDRO Source:: sputum Past Surgical History: Appendectomy, Joint Replacement, Orthopedic Surgery Additional Past Surgical History / Comment(s): 10/09/14 Total L knee arthroplasty. THYROID AND PARA THYROID SURG (2011), RT ROTATOR CUFF(2002), ROCAEL CATARACTS, RT HAND(2012), OVARIAN CYST, ECTOPIC PREGANCY, RT KNEE REPLACEMENT (1998), left knee Oct 2014, "electrical problem in heart" Past Anesthesia/Blood Transfusion Reactions: No Reported Reaction Additional Past Anesthesia/Blood Transfusion Reaction / Comment(s): STATES SEVERE POST NASAL DRIP . Past Psychological History: Anxiety Smoking Status: Former smoker Past Alcohol Use History: Rare Past Drug Use History: None Reported - Past Family History Father Family Medical History: Cancer Additional Family Medical History / Comment(s): ESOPHAGEAL CANCER Mother Family Medical History: Coronary Artery Disease (CAD) Additional Family Medical History / Comment(s): Mother at 100 yrs of age. General Exam Limitations: no limitations General appearance: alert, in no apparent distress, other (This is a well- developed, well-nourished elderly female patient in no acute distress. Vital signs upon presentation are temperature 97.0F, pulse 72, respirations 18, blood pressure 190/77, pulse ox 97% on room air.) Eye exam: Present: normal appearance, PERRL, EOMI. Absent: scleral icterus, conjunctival injection, nystagmus, periorbital swelling ENT exam: Present: normal exam, normal oropharynx, mucous membranes moist, TM's normal bilaterally Neck exam: Present: normal inspection. Absent: tenderness, meningismus, lymphad enopathy Respiratory exam: Present: normal lung sounds bilaterally. Absent: respiratory distress, wheezes, rales, rhonchi, stridor Cardiovascular Exam: Present: regular rate, normal rhythm, normal heart sounds. Absent: systolic murmur, diastolic murmur, rubs, gallop, clicks GI/Abdominal exam: Present: soft, normal bowel sounds. Absent: distended, tenderness, guarding, rebound, rigid Neurological exam: Present: alert, oriented X3, CN II-XII intact, other (Strength in all 4 extremities is 5/5.) Psychiatric exam: Present: normal affect, normal mood Skin exam: Present: warm, dry, intact, normal color. Absent: rash Course Vital Signs 06/09/19 06/09/19 06/09/19 20:17 22:43 23:30 Temperature 97.0 F L Pulse Rate 72 69 74 Respiratory 18 18 18 Rate Blood Pressure 190/77 177/82 171/84 O2 Sat by Pulse 97 98 99 Oximetry EKG Findings - EKG Comments: EKG Findings:: EKG obtained at 2215 shows normal sinus rhythm with a ventricular rate is 67, CT interval 186, QRS duration 104, QT 424, QTC 448. No evidence of ST elevation or depression. Medical Decision Making - Medical Decision Making 89-year-old female patient presented to the emergency department today for evaluation of nasal congestion and weakness. Physical examination is unremarkable. She is neurologically intact with no focal deficits. Labs reviewed and were unremarkable. EKG was normal sinus rhythm. Patient was ambulating in the room, up and down to the bathroom. She is eating without difficulty. I did discuss findings, results with the patient. Patient's blood pressure was elevated in the emergency department, she does admit to taking Sudafed for cold symptoms, she is instructed not to take this due to elevated BP. She'll be discharged home at this time to follow-up with her primary care physician in one to 2 days. Return parameters were discussed in detail. She verbalizes understanding and agrees with this plan. - Lab Data Result diagrams: 06/09/19 22:36 06/09/19 22:36 Lab Results 06/09/19 06/09/19 06/09/19 Range/Units 22:30 22:36 22:36 WBC 7.7 (3.8-10.6) k/uL RBC 4.28 (3.80-5.40) m/uL Hgb 12.3 (11.4-16.0) gm/dL Hct 39.6 (34.0-46.0) % MCV 92.4 (80.0-100.0) fL MCH 28.8 (25.0-35.0) pg MCHC 31.2 (31.0-37.0) g/dL RDW 13.9 (11.5-15.5) % Plt Count 251 (150-450) k/uL Neutrophils % 70 % Lymphocytes % 17 % Monocytes % 6 % Eosinophils % 2 % Basophils % 2 % Neutrophils # 5.4 (1.3-7.7) k/uL Lymphocytes # 1.3 (1.0-4.8) k/uL Monocytes # 0.5 (0-1.0) k/uL Eosinophils # 0.2 (0-0.7) k/uL Basophils # 0.2 (0-0.2) k/uL PT (9.0-12.0) sec INR (<1.2) APTT (22.0-30.0) sec Sodium 140 (137-145) mmol/L Potassium 5.0 (3.5-5.1) mmol/L Chloride 107 (98-107) mmol/L Carbon Dioxide 23 (22-30) mmol/L Anion Gap 10 mmol/L BUN 25 H (7-17) mg/dL Creatinine 1.44 H (0.52-1.04) mg/dL Est GFR (CKD-EPI)AfAm 38 (>60 ml/min/1.73 sqM) Est GFR (CKD-EPI)NonAf 33 (>60 ml/min/1.73 sqM) Glucose 87 (74-99) mg/dL POC Glucose (mg/dL) (75-99) mg/dL POC Glu Petroleum Analyst ID Plasma Lactic Acid Clyde (0.7-2.0) mmol/L Calcium 9.8 (8.4-10.2) mg/dL Magnesium 1.8 (1.6-2.3) mg/dL Total Bilirubin 0.4 (0.2-1.3) mg/dL AST 30 (14-36) U/L ALT 25 (9-52) U/L Alkaline Phosphatase 135 H (38-126) U/L Troponin I (0.000-0.034) ng/mL Total Protein 7.9 (6.3-8.2) g/dL Albumin 4.1 (3.5-5.0) g/dL TSH 2.180 (0.465-4.680) mIU/L Urine Color Colorless Urine Appearance Clear (Clear) Urine pH 7.0 (5.0-8.0) Ur Specific [place] 1.005 (1.001-1.035) Urine Protein 1+ H (Negative) Urine Glucose (UA) Negative (Negative) Urine Ketones Negative (Negative) Urine Blood Negative (Negative) Urine Nitrite Negative (Negative) Urine Bilirubin Negative (Negative) Urine Urobilinogen <2.0 (<2.0) mg/dL Ur Leukocyte Esterase Negative (Negative) Urine RBC 1 (0-5) /hpf Urine WBC 1 (0-5) /hpf Ur Squamous Epith Cells <1 (0-4) /hpf Urine Bacteria Rare H (None) /hpf 06/09/19 06/09/19 06/09/19 Range/Units 22:36 22:36 22:36 WBC (3.8-10.6) k/uL RBC (3.80-5.40) m/uL Hgb (11.4-16.0) gm/dL Hct (34.0-46.0) % MCV (80.0-100.0) fL MCH (25.0-35.0) pg MCHC (31.0-37.0) g/dL RDW (11.5-15.5) % Plt Count (150-450) k/uL Neutrophils % % Lymphocytes % % Monocytes % % Eosinophils % % Basophils % % Neutrophils # (1.3-7.7) k/uL Lymphocytes # (1.0-4.8) k/uL Monocytes # (0-1.0) k/uL Eosinophils # (0-0.7) k/uL Basophils # (0-0.2) k/uL PT 9.7 (9.0-12.0) sec INR 0.9 (<1.2) APTT 22.7 (22.0-30.0) sec Sodium (137-145) mmol/L Potassium (3.5-5.1) mmol/L Chloride (98-107) mmol/L Carbon Dioxide (22-30) mmol/L Anion Gap mmol/L BUN (7-17) mg/dL Creatinine (0.52-1.04) mg/dL Est GFR (CKD-EPI)AfAm (>60 ml/min/1.73 sqM) Est GFR (CKD-EPI)NonAf (>60 ml/min/1.73 sqM) Glucose (74-99) mg/dL POC Glucose (mg/dL) (75-99) mg/dL POC Glu Petroleum Analyst ID Plasma Lactic Acid Clyde 1.1 (0.7-2.0) mmol/L Calcium (8.4-10.2) mg/dL Magnesium (1.6-2.3) mg/dL Total Bilirubin (0.2-1.3) mg/dL AST (14-36) U/L ALT (9-52) U/L Alkaline Phosphatase (38-126) U/L Troponin I <0.012 (0.000-0.034) ng/mL Total Protein (6.3-8.2) g/dL Albumin (3.5-5.0) g/dL TSH (0.465-4.680) mIU/L Urine Color Urine Appearance (Clear) Urine pH (5.0-8.0) Ur Specific [place] (1.001-1.035) Urine Protein (Negative) Urine Glucose (UA) (Negative) Urine Ketones (Negative) Urine Blood (Negative) Urine Nitrite (Negative) Urine Bilirubin (Negative) Urine Urobilinogen (<2.0) mg/dL Ur Leukocyte Esterase (Negative) Urine RBC (0-5) /hpf Urine WBC (0-5) /hpf Ur Squamous Epith Cells (0-4) /hpf Urine Bacteria (None) /hpf 06/10/19 Range/Units 01:03 WBC (3.8-10.6) k/uL RBC (3.80-5.40) m/uL Hgb (11.4-16.0) gm/dL Hct (34.0-46.0) % MCV (80.0-100.0) fL MCH (25.0-35.0) pg MCHC (31.0-37.0) g/dL RDW (11.5-15.5) % Plt Count (150-450) k/uL Neutrophils % % Lymphocytes % % Monocytes % % Eosinophils % % Basophils % % Neutrophils # (1.3-7.7) k/uL Lymphocytes # (1.0-4.8) k/uL Monocytes # (0-1.0) k/uL Eosinophils # (0-0.7) k/uL Basophils # (0-0.2) k/uL PT (9.0-12.0) sec INR (<1.2) APTT (22.0-30.0) sec Sodium (137-145) mmol/L Potassium (3.5-5.1) mmol/L Chloride (98-107) mmol/L Carbon Dioxide (22-30) mmol/L Anion Gap mmol/L BUN (7-17) mg/dL Creatinine (0.52-1.04) mg/dL Est GFR (CKD-EPI)AfAm (>60 ml/min/1.73 sqM) Est GFR (CKD-EPI)NonAf (>60 ml/min/1.73 sqM) Glucose (74-99) mg/dL POC Glucose (mg/dL) 88 (75-99) mg/dL POC Glu Petroleum Analyst ID Janna Lopez Plasma Lactic Acid Clyde (0.7-2.0) mmol/L Calcium (8.4-10.2) mg/dL Magnesium (1.6-2.3) mg/dL Total Bilirubin (0.2-1.3) mg/dL AST (14-36) U/L ALT (9-52) U/L Alkaline Phosphatase (38-126) U/L Troponin I (0.000-0.034) ng/mL Total Protein (6.3-8.2) g/dL Albumin (3.5-5.0) g/dL TSH (0.465-4.680) mIU/L Urine Color Urine Appearance (Clear) Urine pH (5.0-8.0) Ur Specific [place] (1.001-1.035) Urine Protein (Negative) Urine Glucose (UA) (Negative) Urine Ketones (Negative) Urine Blood (Negative) Urine Nitrite (Negative) Urine Bilirubin (Negative) Urine Urobilinogen (<2.0) mg/dL Ur Leukocyte Esterase (Negative) Urine RBC (0-5) /hpf Urine WBC (0-5) /hpf Ur Squamous Epith Cells (0-4) /hpf Urine Bacteria (None) /hpf Disposition Clinical Impression: Viral sinusitis, Hypertension Disposition: HOME SELF-CARE Condition: Good Instructions (If sedation given, give patient instructions): Sinusitis (ED), Weakness (ED), Hypertension (ED) Additional Instructions: Avoid medications with Sudafed as this can raise your blood pressure. Follow-up with the nurse practitioner at your primary care physician's office for recheck in 1-2 days. Return to the emergency department immediately for any new, worsening, or concerning symptoms per Is patient prescribed a controlled substance at d/c from ED?: No Referrals: Nonstaff,Physician [Primary Care Provider] - 1-2 days Time of Disposition: 01:14
[2019-06-10 01:05] LABS: Glucose,Whole Blood 88 mg/dL (75-99)
== END 2019-06-10 01:55 | disposition home or self-care (01) ==
LOC: EC 19:57
DX: J32.9 Chronic sinusitis, unspecified (principal); R53.1 Weakness; I12.9 Hypertensive chronic kidney disease with stage 1 through stage 4 chronic kidney disease, or unspecified chronic kidney disease; N18.3 Chronic kidney disease, stage 3 (moderate); E11.22 Type 2 diabetes mellitus with diabetic chronic kidney disease; F03.90 Unspecified dementia, unspecified severity, without behavioral disturbance, psychotic disturbance, mood disturbance, and anxiety; F41.9 Anxiety disorder, unspecified; Z79.899 Other long term (current) drug therapy; Z79.82 Long term (current) use of aspirin; Z88.0 Allergy status to penicillin; Z88.5 Allergy status to narcotic agent; Z88.6 Allergy status to analgesic agent; Z91.041 Radiographic dye allergy status; Z88.8 Allergy status to other drugs, medicaments and biological substances; Z96.653 Presence of artificial knee joint, bilateral; Z87.891 Personal history of nicotine dependence; Z82.49 Family history of ischemic heart disease and other diseases of the circulatory system; Z86.73 Personal history of transient ischemic attack (TIA), and cerebral infarction without residual deficits
CPT/HCPCS: 36415; 80053; 81001; 83605; 83735; 84443; 84484; 85025; 85610; 85730; 93005; 99284

== ENCOUNTER → 2019-06-15 | Outpatient (CLI) | payer MEDICARE, BC ==
--- NOTE | 2019-06-15 14:10 | SFUN ---
SLEEP CENTER FOLLOW UP NOTE DATE OF SERVICE: 06/15/2019 An 89-year-old lady who has been followed in the Sleep Center for treatment of obstructive sleep apnea-hypopnea syndrome. Patient successfully continued to use her CPAP equipment every night for the whole night without significant problems related to mask fitting, pressure and humidification. She continues to take her Ambien 2.5 mg at bedtime, and with this regimen she is able to fall asleep well. I checked her CPAP unit. Usage is 30/30 nights for more than 4 hours. CPAP pressure of 11 cm of water, leak only 4 L/minute. Apnea-hypopnea index from the 3.0, which is absolutely normal. MEDICATIONS: Glipizide, losartan, ranitidine, felodipine, metoprolol, aspirin, magnesium supplement, lutein, atorvastatin, Zolpidem, Benadryl, . PHYSICAL EXAM: Patient in no distress. BP 135/75, HR 64, RR 16, height 5, 2, weight 227, body mass index 41.5, temperature 96.8, oxygen saturation at room air 94%. OROPHARYNX: Extremely low soft palate, Mallampati 4. ABDOMEN: Obese. Neck Supple, no JVD. Thyroid is not palpable. LUNGS Clear to percussion and to auscultation. Good air exchange. No wheezing or rhonchi. HEART S1, S2 regular. No murmurs, gallops, or rubs. EXTREMITIES No clubbing or cyanosis. [employer]PER[employer]OR Awake, alert, and oriented X3. Cranial nerves 2 to 7 intact. There is no fasciculation or atrophy. noted. No focal deficits observed. IMPRESSION: 1. Obstructive sleep apnea-hypopnea syndrome. Patient demonstrated great compliance with treatment benefitting from treatment. Normal apnea-hypopnea index after correction of pressure, which was done during the previous visit when increased pressure to 11 cm of water. 2. Hypertension. 3. Diabetes mellitus. 4. Obesity. 5. End-stage renal disease. 6. Acid reflux. 7. Difficulties to initiate sleep, on control with Ambien 2.5 mg at bedtime. PLAN: 1. Patient will continue to use treatment with CPAP with the same pressure of 11 cm of water. 2. Losing weight. 3. Sleep hygiene with regular time in bed for 7-1/2 hours for prescription for Ambien 5 mg half of a tablet at bedtime. 4. No driving if feeling sleepiness. Sincerely, Javi Eugene MD, PhD, FAASM Diplomat of [place] [employer] [place] [employer] [facility] Theresa MMPRO / BETTYE: [id number] /
== END | disposition home or self-care (01) ==
LOC: SLEEP 13:06
PROVIDERS: ATTEND Internal Medicine
DX: G47.33 Obstructive sleep apnea (adult) (pediatric) (principal); E11.22 Type 2 diabetes mellitus with diabetic chronic kidney disease; I12.0 Hypertensive chronic kidney disease with stage 5 chronic kidney disease or end stage renal disease; E66.9 Obesity, unspecified; K21.9 Gastro-esophageal reflux disease without esophagitis; N18.6 End stage renal disease; Z68.41 Body mass index [BMI] 40.0-44.9, adult; Z99.89 Dependence on other enabling machines and devices; Z79.82 Long term (current) use of aspirin; Z79.84 Long term (current) use of oral hypoglycemic drugs; Z79.899 Other long term (current) drug therapy

== ENCOUNTER → 2019-06-23 | Outpatient (CLI) | payer MEDICARE, BC ==
--- NOTE | 2019-06-23 15:47 | NM ---
EXAMINATION TYPE: NM parathyroid w/spect DATE OF EXAM: 06/23/2019 COMPARISON: NONE HISTORY: Hypercalcemia. TECHNIQUE: Following administration of 25.7 mCi Tc99m Sestamibi. Anterior projection images of the neck and ches t were obtained 10 minutes and 3 hours post injection. SPECT images of the neck and chest were obtai bentley and reconstructed in three axes. FINDINGS: Thyroid tracer washout: Delayed images demonstrate complete tracer washout from the thyroid. Parathyroid uptake: None. The 3 hour delayed images do not demonstrate any focal abnormal persistent uptake in the region of the parathyroid glands to suggest parathyroid adenoma. Normal uptake: There is physiological tracer uptake in the salivary glands. IMPRESSION: Normal parathyroid imaging study. No evidence for mediastinal uptake to suggest mediastinal parathyro id adenoma
== END | disposition home or self-care (01) ==
LOC: RADNMMAIN 11:21
PROVIDERS: ATTEND Internal Medicine
DX: E83.52 Hypercalcemia (principal)
CPT/HCPCS: 78071; A9500

== ENCOUNTER 2020-08-21 16:35 | Emergency (ER) | payer MEDICARE, BC ==
[2020-08-21 17:10] LABS: Basophils # (A) 0.1 k/uL (0-0.2); Basophils % (A) 2 %; Eosinophils # (A) 0.3 k/uL (0-0.7); Eosinophils % (A) 3 %; HCT 37.4 % (34.0-46.0); Lymphocytes # (A) 1.2 k/uL (1.0-4.8); Lymphocytes % (A) 15 %; MCH 30.5 pg (25.0-35.0); MCHC 32.2 g/dL (31.0-37.0); MCV 94.8 fL (80.0-100.0); Mean Platelet Volume 7.2; Monocytes # (A) 0.5 k/uL (0-1.0); Monocytes % (A) 6 %; Neutrophils # (A) 5.6 k/uL (1.3-7.7); Neutrophils % (A) 71 %; Platelet Count 262 k/uL (150-450); RBC 3.94 m/uL (3.80-5.40); RDW 13.3 % (11.5-15.5); WBC 7.8 k/uL (3.8-10.6)
[2020-08-21 17:24] LABS: Albumin 4.3 g/dL (3.5-5.0); Calcium 9.4 mg/dL (8.4-10.2); Potassium 5.6 mmol/L (3.5-5.1); Total Bilirubin 0.4 mg/dL (0.2-1.3); Total Protein 7.9 g/dL (6.3-8.2)
--- NOTE | 2020-08-21 17:34 | ED ---
General Adult HPI - General Chief complaint: Weakness Stated complaint: weakness, SOB Time Seen by Provider: 08/21/20 17:07 Source: patient, RN notes reviewed Mode of arrival: wheelchair Limitations: no limitations - History of Present Illness Initial comments: Patient is a pleasant 89-year-old female presenting to the emergency Department with complaints of general weakness and fatigue. Onset of symptoms was over a year ago, symptoms worse today. Patient had difficulty going to the lab to get blood draw. Patient does have some exertional dyspnea. No dyspnea at rest. No chest pain. No neck pain or leg swelling. Patient denies any confusion or isolated area of weakness. - Related Data Home Medications Medication Instructions Recorded Confirmed Metoprolol Tartrate [Lopressor] 75 mg PO BID 05/06/14 02/08/19 Aspirin 81 mg PO DAILY 01/28/15 02/08/19 Atorvastatin [Lipitor] 20 mg PO HS 01/28/15 02/08/19 Zolpidem [Ambien] 2.5 mg PO HS PRN 01/28/15 02/08/19 Felodipine [Felodipine ER] 10 mg PO DAILY 04/21/17 02/08/19 Loperamide HCl [Imodium A-D] 2 mg PO DAILY 04/21/17 02/08/19 Losartan Potassium 100 mg PO QAM 04/21/17 02/08/19 Ranitidine HCl [Zantac] 150 mg PO DAILY 04/21/17 02/08/19 diphenhydrAMINE [Benadryl] 50 mg PO HS PRN 04/21/17 02/08/19 Previous Rx's Medication Instructions Recorded Meclizine [Antivert] 25 mg PO TID PRN #9 tab 02/08/19 Allergies Allergy/AdvReac Type Severity Reaction Status Date / Time Penicillins Allergy Anaphylaxis Verified 06/09/19 20:27 codeine AdvReac Severe Nausea, Verified 06/09/19 20:27 Headache tramadol HCl [From Ultram] AdvReac Severe Nausea, Verified 06/09/19 20:27 Headache iodine AdvReac "THYROID Verified 06/09/19 20:27 ISSUES" Review of Systems ROS Statement: Those systems with pertinent positive or pertinent negative responses have been documented in the HPI. ROS Other: All systems not noted in ROS Statement are negative. Constitutional: Denies: fever Eyes: Denies: eye pain ENT: Denies: ear pain Respiratory: Reports: as per HPI. Denies: cough Cardiovascular: Reports: palpitations. Denies: chest pain Endocrine: Reports: fatigue Gastrointestinal: Denies: abdominal pain Genitourinary: Denies: dysuria Musculoskeletal: Denies: back pain Skin: Denies: rash Neurological: Reports: as per HPI Past Medical History Past Medical History: Dementia Additional Past Medical History / Comment(s): HX OF : TIA, PERIPHERAL NEUOPATHY, DIET CONTROLLED DIABETES, SWELLING IN LEGS AND FEET- WEARS COMPRESSION STOCKINGS. HX OF VIRAL HEPATITIS (1959).USES C-PAP MACHINE @ HOME. She does not know her CPAP settings. CKDIII History of Any Multi-Drug Resistant Organisms: MRSA Date of last positivie culture/infection: 01/28/2015 MDRO Source:: sputum Past Surgical History: Appendectomy, Joint Replacement, Orthopedic Surgery Additional Past Surgical History / Comment(s): 10/09/14 Total L knee arthroplasty. THYROID AND PARA THYROID SURG (2011), RT ROTATOR CUFF(2002), ROCAEL CATARACTS, RT HAND(2012), OVARIAN CYST, ECTOPIC PREGANCY, RT KNEE REPLACEMENT (1998), left knee Oct 2014, "electrical problem in heart" Past Anesthesia/Blood Transfusion Reactions: No Reported Reaction Additional Past Anesthesia/Blood Transfusion Reaction / Comment(s): STATES SEVERE POST NASAL DRIP . Past Psychological History: Anxiety Past Alcohol Use History: Rare Past Drug Use History: None Reported - Past Family History Father Family Medical History: Cancer Additional Family Medical History / Comment(s): ESOPHAGEAL CANCER Mother Family Medical History: Coronary Artery Disease (CAD) Additional Family Medical History / Comment(s): Mother at 100 yrs of age. General Exam Limitations: no limitations General appearance: alert, in no apparent distress Head exam: Present: normocephalic Eye exam: Present: normal appearance, PERRL ENT exam: Present: normal oropharynx Neck exam: Present: normal inspection Respiratory exam: Present: normal lung sounds bilaterally Cardiovascular Exam: Present: regular rate, normal rhythm GI/Abdominal exam: Present: soft. Absent: tenderness Extremities exam: Present: pedal edema (Patient states chronic). Absent: calf tenderness Back exam: Present: normal inspection Neurological exam: Present: alert Psychiatric exam: Present: normal affect, normal mood Skin exam: Present: normal color Course Vital Signs 12/08/21/20 08/21/20 16:39 17:24 18:18 Temperature 97.8 F Pulse Rate 83 75 68 Respiratory 18 16 16 Rate Blood Pressure 160/75 174/90 159/80 O2 Sat by Pulse 97 96 96 Oximetry Medical Decision Making - Medical Decision Making Patient reevaluated and resting comfortably in bed. Patient states overall things are getting difficult at home she does stay at [facility] [employer] and can get additional help if needed. Patient states she does get meals delivered to her and is still able to get to her meals. Patient is still able to get up using restroom without difficulty. Patient is receptive to receiving information for possible new primary care physician. - Lab Data Result diagrams: 08/21/20 16:48 08/21/20 16:48 Lab Results 08/21/20 08/21/20 08/21/20 Range/Units 16:48 16:48 16:48 WBC 7.8 (3.8-10.6) k/uL RBC 3.94 (3.80-5.40) m/uL Hgb 12.0 (11.4-16.0) gm/dL Hct 37.4 (34.0-46.0) % MCV 94.8 (80.0-100.0) fL MCH 30.5 (25.0-35.0) pg MCHC 32.2 (31.0-37.0) g/dL RDW 13.3 (11.5-15.5) % Plt Count 262 (150-450) k/uL MPV 7.2 Neutrophils % 71 % Lymphocytes % 15 % Monocytes % 6 % Eosinophils % 3 % Basophils % 2 % Neutrophils # 5.6 (1.3-7.7) k/uL Lymphocytes # 1.2 (1.0-4.8) k/uL Monocytes # 0.5 (0-1.0) k/uL Eosinophils # 0.3 (0-0.7) k/uL Basophils # 0.1 (0-0.2) k/uL PT (9.0-12.0) sec INR (<1.2) APTT (22.0-30.0) sec Sodium 138 (137-145) mmol/L Potassium 5.6 H (3.5-5.1) mmol/L Chloride 107 (98-107) mmol/L Carbon Dioxide 21 L (22-30) mmol/L Anion Gap 10 mmol/L BUN 26 H (7-17) mg/dL Creatinine 1.82 H (0.52-1.04) mg/dL Est GFR (CKD-EPI)AfAm 28 (>60 ml/min/1.73 sqM) Est GFR (CKD-EPI)NonAf 24 (>60 ml/min/1.73 sqM) Glucose 141 H (74-99) mg/dL Plasma Lactic Acid [place] 1.2 (0.7-2.0) mmol/L Calcium 9.4 (8.4-10.2) mg/dL Total Bilirubin 0.4 (0.2-1.3) mg/dL AST 34 (14-36) U/L ALT 27 (4-34) U/L Alkaline Phosphatase 135 H (38-126) U/L Troponin I (0.000-0.034) ng/mL NT-Pro-B Natriuret Pep pg/mL Total Protein 7.9 (6.3-8.2) g/dL Albumin 4.3 (3.5-5.0) g/dL Urine Color Urine Appearance (Clear) Urine pH (5.0-8.0) Ur Specific [place] (1.001-1.035) Urine Protein (Negative) Urine Glucose (UA) (Negative) Urine Ketones (Negative) Urine Blood (Negative) Urine Nitrite (Negative) Urine Bilirubin (Negative) Urine Urobilinogen (<2.0) mg/dL Ur Leukocyte Esterase (Negative) Urine RBC (0-5) /hpf Urine WBC (0-5) /hpf Ur Squamous Epith Cells (0-4) /hpf Urine Mucus (None) /hpf 08/21/20 08/21/20 08/21/20 Range/Units 16:48 17:24 17:44 WBC (3.8-10.6) k/uL RBC (3.80-5.40) m/uL Hgb (11.4-16.0) gm/dL Hct (34.0-46.0) % MCV (80.0-100.0) fL MCH (25.0-35.0) pg MCHC (31.0-37.0) g/dL RDW (11.5-15.5) % Plt Count (150-450) k/uL MPV Neutrophils % % Lymphocytes % % Monocytes % % Eosinophils % % Basophils % % Neutrophils # (1.3-7.7) k/uL Lymphocytes # (1.0-4.8) k/uL Monocytes # (0-1.0) k/uL Eosinophils # (0-0.7) k/uL Basophils # (0-0.2) k/uL PT (9.0-12.0) sec INR (<1.2) APTT (22.0-30.0) sec Sodium (137-145) mmol/L Potassium (3.5-5.1) mmol/L Chloride (98-107) mmol/L Carbon Dioxide (22-30) mmol/L Anion Gap mmol/L BUN (7-17) mg/dL Creatinine (0.52-1.04) mg/dL Est GFR (CKD-EPI)AfAm (>60 ml/min/1.73 sqM) Est GFR (CKD-EPI)NonAf (>60 ml/min/1.73 sqM) Glucose (74-99) mg/dL Plasma Lactic Acid [place] (0.7-2.0) mmol/L Calcium (8.4-10.2) mg/dL Total Bilirubin (0.2-1.3) mg/dL AST (14-36) U/L ALT (4-34) U/L Alkaline Phosphatase (38-126) U/L Troponin I <0.012 (0.000-0.034) ng/mL NT-Pro-B Natriuret Pep 1090 pg/mL Total Protein (6.3-8.2) g/dL Albumin (3.5-5.0) g/dL Urine Color Light Yellow Urine Appearance Clear (Clear) Urine pH 7.0 (5.0-8.0) Ur Specific [place] 1.011 (1.001-1.035) Urine Protein 2+ H (Negative) Urine Glucose (UA) Negative (Negative) Urine Ketones Negative (Negative) Urine Blood Negative (Negative) Urine Nitrite Negative (Negative) Urine Bilirubin Negative (Negative) Urine Urobilinogen <2.0 (<2.0) mg/dL Ur Leukocyte Esterase Negative (Negative) Urine RBC <1 (0-5) /hpf Urine WBC 1 (0-5) /hpf Ur Squamous Epith Cells <1 (0-4) /hpf Urine Mucus Rare H (None) /hpf 08/21/20 Range/Units 18:40 WBC (3.8-10.6) k/uL RBC (3.80-5.40) m/uL Hgb (11.4-16.0) gm/dL Hct (34.0-46.0) % MCV (80.0-100.0) fL MCH (25.0-35.0) pg MCHC (31.0-37.0) g/dL RDW (11.5-15.5) % Plt Count (150-450) k/uL MPV Neutrophils % % Lymphocytes % % Monocytes % % Eosinophils % % Basophils % % Neutrophils # (1.3-7.7) k/uL Lymphocytes # (1.0-4.8) k/uL Monocytes # (0-1.0) k/uL Eosinophils # (0-0.7) k/uL Basophils # (0-0.2) k/uL PT 9.6 (9.0-12.0) sec INR 0.9 (<1.2) APTT 19.8 L (22.0-30.0) sec Sodium (137-145) mmol/L Potassium (3.5-5.1) mmol/L Chloride (98-107) mmol/L Carbon Dioxide (22-30) mmol/L Anion Gap mmol/L BUN (7-17) mg/dL Creatinine (0.52-1.04) mg/dL Est GFR (CKD-EPI)AfAm (>60 ml/min/1.73 sqM) Est GFR (CKD-EPI)NonAf (>60 ml/min/1.73 sqM) Glucose (74-99) mg/dL Plasma Lactic Acid [place] (0.7-2.0) mmol/L Calcium (8.4-10.2) mg/dL Total Bilirubin (0.2-1.3) mg/dL AST (14-36) U/L ALT (4-34) U/L Alkaline Phosphatase (38-126) U/L Troponin I (0.000-0.034) ng/mL NT-Pro-B Natriuret Pep pg/mL Total Protein (6.3-8.2) g/dL Albumin (3.5-5.0) g/dL Urine Color Urine Appearance (Clear) Urine pH (5.0-8.0) Ur Specific [place] (1.001-1.035) Urine Protein (Negative) Urine Glucose (UA) (Negative) Urine Ketones (Negative) Urine Blood (Negative) Urine Nitrite (Negative) Urine Bilirubin (Negative) Urine Urobilinogen (<2.0) mg/dL Ur Leukocyte Esterase (Negative) Urine RBC (0-5) /hpf Urine WBC (0-5) /hpf Ur Squamous Epith Cells (0-4) /hpf Urine Mucus (None) /hpf - Radiology Data Radiology results: report reviewed (Computed tomography scan of the brain shows atrophy and chronic small vessel ischemia. No acute intercranial abnormality.), image reviewed (Chest x-ray reveals no acute process) Disposition Clinical Impression: Fatigue, Heart palpitations Disposition: HOME SELF-CARE Condition: Stable Instructions (If sedation given, give patient instructions): Heart Palpitations (ED), Fatigue (ED) Additional Instructions: Please follow-up with primary care physician in the next couple days for recheck. Return for increased weakness, unable to walk, fevers, confusion, worsening or changing symptoms or other concerns. Is patient prescribed a controlled substance at d/c from ED?: No Referrals: Josselyn Porras NPC [Primary Care Provider] - 1-2 days Jan Lynn MD [STAFF PHYSICIAN] - 1-2 days Luis Manuel Gurrola MD [REFERRING] - 1-2 days Jason Villalpando MD [REFERRING] - 1-2 days Time of Disposition: 19:56
[2020-08-21 17:37] LABS: Appearance,Urine Clear (Clear); Bilirubin,Urine Negative (Negative); Blood,Urine Negative (Negative); Color,Urine Light Yellow; Glucose,Urine (UA) Negative (Negative); Ketones,Urine Negative (Negative); Leukocyte Esterase,Urine Negative (Negative); Mucus,Urine Rare /hpf; Nitrite,Urine Negative (Negative); Protein,Urine 2+ (Negative); RBC,Urine <1 /hpf (0-5); Specific Gravity,Urine 1.011 (1.001-1.035); Squamous Epithelial Cell,Urine <1 /hpf (0-4); Urobilinogen,Urine <2.0 mg/dL (<2.0); WBC,Urine 1 /hpf (0-5)
--- NOTE | 2020-08-21 18:07 | CT ---
EXAMINATION TYPE: CT brain wo con DATE OF EXAM: 08/21/2020 COMPARISON: None HISTORY: Weakness and fatigue. Recent changes in medications. CT DLP: 1202.4 mGycm Automated exposure control for dose reduction was used. Images obtained of the brain without contrast. There is mild cerebral atrophy. There is no mass effect nor midline shift. There is no sign of intrac ranial hemorrhage. There is mild hypodensity in the periventricular white matter. The calvarium is in tact. IMPRESSION: Mild cerebral atrophy and chronic small vessel ischemia. No acute intracranial abnormality.
--- NOTE | 2020-08-21 18:56 | XR ---
EXAMINATION TYPE: XR chest 2V DATE OF EXAM: 08/21/2020 COMPARISON: 02/08/2019 HISTORY: Dizziness TECHNIQUE: 2 views FINDINGS: Heart is enlarged. There is no heart failure. There is spurring in the thoracic spine. Ther e are no hilar masses. There are chest leads. IMPRESSION: No active cardiopulmonary disease. No change.
[2020-08-21 19:09] LABS: INR 0.9 (<1.2); Prothrombin Time 9.6 sec (9.0-12.0)
[2020-08-21 19:17] LABS: Partial Thromboplastin Time 19.8 sec (22.0-30.0)
[2020-08-21] MEDS ORDERED: SODIUM CHLORIDE 0.9% 500 ML 500 ML IV STA (19:57)
[2020-08-21 20:57] VITALS: RESP 20; TEMP 97.7
[2020-08-21 22:01] VITALS: BP 161/76; PULSE 80
== END 2020-08-21 21:45 | disposition home or self-care (01) ==
LOC: EC 16:35
DX: R00.2 Palpitations (principal); R53.83 Other fatigue; R06.00 Dyspnea, unspecified; F41.9 Anxiety disorder, unspecified; N18.30 Chronic kidney disease, stage 3 unspecified; E11.22 Type 2 diabetes mellitus with diabetic chronic kidney disease; E11.40 Type 2 diabetes mellitus with diabetic neuropathy, unspecified; Z79.82 Long term (current) use of aspirin; Z79.899 Other long term (current) drug therapy; Z88.0 Allergy status to penicillin; Z88.5 Allergy status to narcotic agent; Z88.6 Allergy status to analgesic agent; Z91.041 Radiographic dye allergy status; Z98.41 Cataract extraction status, right eye; Z98.42 Cataract extraction status, left eye; Z96.653 Presence of artificial knee joint, bilateral; Z86.14 Personal history of Methicillin resistant Staphylococcus aureus infection; Z90.49 Acquired absence of other specified parts of digestive tract; Z86.73 Personal history of transient ischemic attack (TIA), and cerebral infarction without residual deficits
CPT/HCPCS: 36415; 70450; 71046; 80053; 81001; 83605; 83880; 84484; 85025; 85610; 85730; 93005; 96360; 99285